=== PATIENT | female | born 1980 | race American Indian/Alaskan Native ===

== ENCOUNTER 2016-09-24 01:54 | Emergency (ER) | payer MEDICAID ==
[2016-09-24] MEDS ORDERED: Magnesium Sulfate 2 GM in Sodium Chloride 0.9% 100 ML IV STA (02:21)
[2016-09-24] MEDS ORDERED: Albuterol-Ipratrop 3 mg / 0.5 (3 ml) UD INH STA ×3 (02:21→02:22)
--- NOTE | 2016-09-24 02:24 | ED PDOC ---
HPI: SOB/CHF/COPD Time Seen by Provider: 09/24/16 02:12 Chief Complaint (Nursing): Respiratory Distress Chief Complaint (Provider): SOB History Per: Patient History/Exam Limitations: no limitations Onset/Duration Of Symptoms: Days (1) Current Symptoms Are (Timing): Still Present Additional Complaint(s): 36yo female with PMHx including asthma presents to the ED with c/o SOB x 1 day. Patient reports misplacing ventolin pump and complains of wheezing and dry cough. Denies fever, n/v/d, chest pain. Past Medical History Reviewed: Historical Data, Nursing Documentation, Vital Signs Vital Signs: Last Vital Signs Temp 98.6 F 09/24/16 02:17 Pulse 98 H 09/24/16 02:17 Resp 16 09/24/16 02:17 BP 124/78 09/24/16 02:17 Pulse Ox 99 09/24/16 02:29 - Medical History PMH: Asthma, COPD, Emphysema Denies: Chronic Kidney Disease - Surgical History Surgical History: No Surg Hx - Family History Family History: States: No Known Family Hx - Social History Current smoker - smoking cessation education provided: No Alcohol: None Drugs: Denies - Home Medications Home Medications: Ambulatory Orders Medication Instructions Recorded Albuterol HFA [Ventolin HFA 90 2 puff IH Q4 #0 puff 08/16/14 mcg/actuation (8 g)] Codeine Phosphate/Promethazi 5 ml PO Q4 PRN #0 syr 08/16/14 [Promethazine with Codeine 10 mg/5 ml-6.25 mg/] Fluticasone/Salmeterol 100/50 1 puff IH Q12 #0 puff 08/16/14 [Advair Diskus 100/50] Ipratropium/Albuterol Sulfate 3 ml IH BID #0 darlene 08/16/14 [Duoneb 3 mg/3 ml-0.5 mg/3 ml 3 ml] Levocetirizine Dihydrochlori 5 mg PO DAILY #0 tab 08/16/14 [Xyzal] Montelukast Sodium [Singulair] 10 mg PO DAILY #0 tab 08/16/14 Pantoprazole [Protonix] 40 mg PO DAILY #0 ect 08/16/14 Prednisone 5 mg PO DAILY #0 tab 02/05/15 Albuterol 1 puff IH Q4 PRN #1 inh 05/30/15 Albuterol HFA [Ventolin HFA 90 1 - 2 puff IH Q6 PRN #1 inhaler 03/25/16 mcg/actuation (8 g)] predniSONE [predniSONE Tab] 60 mg PO QAM #12 tab 03/25/16 Albuterol HFA [Ventolin HFA 90 2 puff IH [id number] PRN #1 puff 07/03/16 mcg/actuation (8 g)] Fluticasone/Salmeterol 250/50 1 dsk IH DAILY #1 puff 07/03/16 [Advair Diskus] Methylprednisolone [Medrol Dose 4 mg PO DAILY #21 mg 07/03/16 Pack (21 tabs)] Methylprednisolone [Medrol Dosepak] 4 mg PO ASDIR #1 pkg 09/24/16 - Allergies Allergies/Adverse Reactions: Allergies Allergy/AdvReac Type Severity Reaction Status Date / Time FISH Allergy SHORTNESS Verified 07/03/16 14:48 OF BREATH iodine Allergy SHORTNESS Verified 07/03/16 14:48 OF BREATH shellfish derived Allergy SHORTNESS Verified 07/03/16 14:48 OF BREATH Review of Systems ROS Statement: Except As Marked, All Systems Reviewed And Found Negative Constitutional: Negative for: Fever Cardiovascular: Negative for: Chest Pain Respiratory: Positive for: Cough, Shortness of Breath, Wheezing Gastrointestinal: Negative for: Nausea, Vomiting, Diarrhea Physical Exam - Reviewed Nursing Documentation Reviewed: Yes Vital Signs Reviewed: Yes - Physical Exam Appears: Positive for: Well, No Acute Distress, Uncomfortable Head Exam: Positive for: ATRAUMATIC, NORMAL INSPECTION, NORMOCEPHALIC Skin: Positive for: Normal Color, Warm, Dry Eye Exam: Positive for: Normal appearance, EOMI, PERRL ENT: Positive for: Normal ENT Inspection Neck: Positive for: Normal, Painless ROM, Supple Cardiovascular/Chest: Positive for: Regular Rate, Rhythm. Negative for: Murmur , Tachycardia Respiratory: Positive for: Rhonchi (b/l inspiratory ), Wheezing (b/l expiratory ). Negative for: Respiratory Distress Gastrointestinal/Abdominal: Positive for: Normal Exam, Bowel Sounds, Soft. Negative for: Tenderness Back: Positive for: Normal Inspection. Negative for: L CVA Tenderness, R CVA Tenderness Extremity: Positive for: Normal ROM. Negative for: Deformity, Swelling Neurologic/Psych: Positive for: Alert, Oriented. Negative for: Motor/Sensory Deficits - Laboratory Results Result Diagrams: 09/24/16 02:33 09/24/16 02:33 - ECG O2 Sat by Pulse Oximetry: 99 Pulse Ox Interpretation: Normal Medical Decision Making Medical Decision Makin: Impression: 36yo female w/ wheezing and cough in setting of known asthma Plan: EKG Labs duoneb 3ml INH x3, mag sulfate 2gm IV, solu-medrol 125mg IVP, IVF reassess 0458: Patient reports marked improvement and is stable for d/c. Dx: asthma exacerbation Rx: medrol dosepak Improved F/U PCP 1-2 days Scribe Attestation: Documented by Brittany Brown acting as a scribe for Mark Castellano MD. Provider Scribe Attestation: All medical record entries made by the Scribe were at my direction and personally dictated by me. I have reviewed the chart and agree that the record accurately reflects my personal performance of the history, physical exam, medical decision making, and the department course for this patient. I have also personally directed, reviewed, and agree with the discharge instructions and disposition. Disposition - Clinical Impression Clinical Impression: Asthma attack - Patient ED Disposition Is Patient to be Admitted: No Counseled Patient/Family Regarding: Studies Performed, Diagnosis, Need For Followup, Rx Given - Disposition Referrals: Eliane Barrera MD [Primary Care Provider] - Disposition: Routine/Home Disposition Time: 04:58 Condition: IMPROVED Prescriptions: Methylprednisolone [Medrol Dosepak] 4 mg PO ASDIR #1 pkg Instructions: Asthma (ED)
[2016-09-24 02:43] LABS: BASO # 0.1 K/uL (0.0-0.2); BASO % 0.9 % (0.0-2.0); EOS # 0.9 K/uL (0.0-0.7); HEMATOCRIT 39.3 % (34.0-47.0); LYMPH # 2.6 K/uL (1.0-4.3); MEAN CELL VOLUME 93.6 fl (81.0-99.0); MEAN CORPUSCULAR HGB CONC 33.1 g/dL (33.0-37.0); MONO # 0.7 K/uL (0.0-0.8); MONO % 6.7 % (0.0-10.0); NEUT # 6.4 K/uL (1.8-7.0); NEUT % 60.4 % (50.0-75.0); RED CELL DISTRIBUTION WIDTH 14.3 % (11.5-14.5); WHITE BLOOD COUNT 10.6 K/uL (4.8-10.8)
[2016-09-24 02:46] LABS: CHLORIDE 105 mmol/L (98-107)
[2016-09-24 02:47] LABS: POTASSIUM 4.4 MMOL/L (3.6-5.0); SODIUM 139 mmol/l (132-148)
[2016-09-24 02:49] LABS: ALB/GLOB RATIO 1.2 (1.0-2.1); ALKALINE PHOSPHATASE 80 U/L (38-126); AST/SGOT 25 U/L (14-36); BILIRUBIN,TOTAL 0.3 mg/dl (0.2-1.3); CARBON DIOXIDE 23 mmol/L (22-30); GFR AFRICAN-AMERICAN > 60; TOTAL PROTEIN 7.6 G/DL (6.3-8.2)
[2016-09-24 02:50] LABS: ALT/SGPT 18 U/L (9-52); BLOOD UREA NITROGEN 18 mg/dl (7-17); CALCIUM 9.2 mg/dL (8.4-10.2); GLUCOSE,RANDOM 92 mg/dL (65-105)
[2016-09-24 05:40] VITALS: BP 124/78; PULSE 98; TEMP 98.6; O2SAT 99
[2016-09-24 06:41] VITALS: RESP 30
--- NOTE | 2016-09-24 18:55 | CARD ---
APPROVED REPORT EKG Measurement Heart [id number] <Conclusion> Normal sinus rhythm Possible Left atrial enlargement Borderline ECG
== END 2016-09-24 04:15 | disposition home or self-care (01) ==
LOC: H.ER 01:54
DX: J45.901 Unspecified asthma with (acute) exacerbation (principal); R05 Cough

== ENCOUNTER 2016-11-30 16:41 | Emergency (ER) | payer MEDICAID ==
[2016-11-30 16:48] VITALS: BP 126/81; PULSE 72; RESP 18; TEMP 98.7; O2SAT 95
[2016-11-30] MEDS ORDERED: Albuterol-Ipratrop 3 mg / 0.5 (3 ml) UD ONE (17:06)
[2016-11-30] MEDS ORDERED: Albuterol-Ipratrop 3 mg / 0.5 (3 ml) UD INH STA (17:12)
--- NOTE | 2016-11-30 18:02 | ED PDOC ---
HPI: Allergic Reaction Time Seen by Provider: 11/30/16 16:51 Chief Complaint (Nursing): Allergic Reaction Chief Complaint (Provider): Allergic Reaction History Per: Patient History/Exam Limitations: no limitations Onset/Duration Of Symptoms: Days (x1 day) Current Symptoms Are (Timing): Still Present Additional Complaint(s): 26 y/o female with a past medical history from asthma presents to the emergency department with a complaint of shortness of breath since 8am today, 11/30/2016. Associated with a non-productive cough, chest tightness and asthma exacerbation. Reports using albuterol pump and taking singulair with minimal relief of symptoms. States she is allergic to fish so when fish is cooked at work, it immediately causes asthma exacerbation. Denies fever and chills. PMD: [facility] in [place], [place] Past Medical History Reviewed: Historical Data, Nursing Documentation, Vital Signs Vital Signs: Last Vital Signs Temp 98.7 F 11/30/16 16:45 Pulse 72 11/30/16 16:45 Resp 18 11/30/16 16:45 BP 126/81 11/30/16 16:45 Pulse Ox 95 11/30/16 16:45 - Medical History PMH: Asthma, COPD, Emphysema Denies: Chronic Kidney Disease Other PMH: Seasonal allergies and ezcema - Surgical History Surgical History: No Surg Hx - Family History Family History: States: Other Other Family History: Asthma - Social History Current smoker - smoking cessation education provided: No - Home Medications Home Medications: Ambulatory Orders Medication Instructions Recorded Albuterol HFA [Ventolin HFA 90 2 puff IH Q4 #0 puff 08/16/14 mcg/actuation (8 g)] Codeine Phosphate/Promethazi 5 ml PO Q4 PRN #0 syr 08/16/14 [Promethazine with Codeine 10 mg/5 ml-6.25 mg/] Fluticasone/Salmeterol 100/50 1 puff IH Q12 #0 puff 08/16/14 [Advair Diskus 100/50] Ipratropium/Albuterol Sulfate 3 ml IH BID #0 darlene 08/16/14 [Duoneb 3 mg/3 ml-0.5 mg/3 ml 3 ml] Levocetirizine Dihydrochlori 5 mg PO DAILY #0 tab 08/16/14 [Xyzal] Montelukast Sodium [Singulair] 10 mg PO DAILY #0 tab 08/16/14 Pantoprazole [Protonix] 40 mg PO DAILY #0 ect 08/16/14 Prednisone 5 mg PO DAILY #0 tab 08/16/14 Albuterol 1 puff IH Q4 PRN #1 inh 05/30/15 Albuterol HFA [Ventolin HFA 90 1 - 2 puff IH Q6 PRN #1 inhaler 03/25/16 mcg/actuation (8 g)] predniSONE [predniSONE Tab] 60 mg PO QAM #12 tab 03/25/16 Albuterol HFA [Ventolin HFA 90 2 puff IH [id number] PRN #1 puff 07/03/16 mcg/actuation (8 g)] Fluticasone/Salmeterol 250/50 1 dsk IH DAILY #1 puff 07/03/16 [Advair Diskus] Methylprednisolone [Medrol Dose 4 mg PO DAILY #21 mg 07/03/16 Pack (21 tabs)] Albuterol HFA [Ventolin HFA 90 1 - 2 puff IH Q6 PRN #1 inhaler 09/24/16 mcg/actuation (8 g)] Methylprednisolone [Medrol Dosepak] 4 mg PO ASDIR #1 pkg 09/24/16 Albuterol 0.083% [Albuterol 3 ml IH Q4 PRN #50 neb 11/30/16 Sulfate 3 Ml] Fexofenadine HCl [JulianneNf] 180 mg PO DAILY #30 tab 11/30/16 Prednisone 50 mg PO DAILY #3 tablet 11/30/16 - Allergies Allergies/Adverse Reactions: Allergies Allergy/AdvReac Type Severity Reaction Status Date / Time FISH Allergy SHORTNESS Verified 11/30/16 16:45 OF BREATH iodine Allergy SHORTNESS Verified 11/30/16 16:45 OF BREATH shellfish derived Allergy SHORTNESS Verified 11/30/16 16:45 OF BREATH Review of Systems ROS Statement: Except As Marked, All Systems Reviewed And Found Negative Constitutional: Negative for: Fever, Chills Cardiovascular: Positive for: Other (chest tightness) Respiratory: Positive for: Cough (Non-productive ), Shortness of Breath, Other ( Difficulty breathing) Physical Exam - Reviewed Nursing Documentation Reviewed: Yes Vital Signs Reviewed: Yes - Physical Exam Appears: Positive for: Non-toxic, No Acute Distress Head Exam: Positive for: ATRAUMATIC, NORMOCEPHALIC Skin: Positive for: Normal Color, Warm, Dry Cardiovascular/Chest: Positive for: Regular Rate, Rhythm. Negative for: Murmur Respiratory: Positive for: Rhonchi (Loud rhonchi on the right lower lung field ) , Wheezing (End expiratory wheeze). Negative for: Accessory Muscle Use, Respiratory Distress Neurologic/Psych: Positive for: Alert, Oriented - ECG O2 Sat by Pulse Oximetry: 95 (RA) Pulse Ox Interpretation: Normal - Critical Care Notes:: Time: 16:51 Initial impression: Asthma exacerbation rule out pneumonia Initial plan: --ED Urine Dipstick (POC) Stat --ED Urine (POC) --Chest Twi Views (PA/LAT) (RAD) --Duoneb 3 ml INH Stat --Peak Flow PRE/POST TX --Revaluation Time: 18:23 Chest X-ray FINDINGS: LUNGS: No focal consolidation. Please note that chest x-ray has limited sensitivity for the detection of pulmonary masses. PLEURA: No significant pleural effusion identified. No definite pneumothorax . CARDIOVASCULAR: The cardiomediastinal silhouette appears within normal limits of size. OSSEOUS STRUCTURES: No acute osseous abnormality identified. VISUALIZED UPPER ABDOMEN: Unremarkable. OTHER FINDINGS: None. IMPRESSION: No focal consolidation, significant pleural effusion, or definite pneumothorax identified. Scribe Attestation: Documented by Emelina Meyer, acting as a scribe for Nimisha Knowles MD. Provider Scribe Attestation: All medical record entries made by the Scribe were at my direction and personally dictated by me. I have reviewed the chart and agree that the record accurately reflects my personal performance of the history, physical exam, medical decision making, and the department course for this patient. I have also personally directed, reviewed, and agree with the discharge instructions and disposition. Disposition - Clinical Impression Clinical Impression: Asthma exacerbation Counseled Patient/Family Regarding: Studies Performed, Diagnosis, Need For Followup, Rx Given - Disposition Referrals: [facility] [Provider Group] Disposition: Routine/Home Disposition Time: 18:00 Condition: IMPROVED Prescriptions: Albuterol 0.083% [Albuterol Sulfate 3 Ml] 3 ml IH Q4 PRN #50 neb PRN Reason: asthma Fexofenadine HCl [JulianneNf] 180 mg PO DAILY #30 tab Prednisone 50 mg PO DAILY #3 tablet Instructions: Asthma (ED) Forms: [facility] ED School/Work Excuse
--- NOTE | 2016-11-30 18:25 | RAD ---
HISTORY: sob COMPARISON: Chest x-ray performed 08/14/14 TECHNIQUE: Chest PA and lateral FINDINGS: LUNGS: No focal consolidation. Please note that chest x-ray has limited sensitivity for the detection of pulmonary masses. PLEURA: No significant pleural effusion identified. No definite pneumothorax . CARDIOVASCULAR: The cardiomediastinal silhouette appears within normal limits of size. OSSEOUS STRUCTURES: No acute osseous abnormality identified. VISUALIZED UPPER ABDOMEN: Unremarkable. OTHER FINDINGS: None. IMPRESSION: No focal consolidation, significant pleural effusion, or definite pneumothorax identified.
== END 2016-11-30 19:13 | disposition home or self-care (01) ==
LOC: H.ER 16:41
DX: J45.901 Unspecified asthma with (acute) exacerbation (principal); J44.9 Chronic obstructive pulmonary disease, unspecified; R06.02 Shortness of breath

== ENCOUNTER 2017-02-06 03:06 | Emergency (ER) | payer MEDICAID ==
[2017-02-06 03:22] VITALS: BP 124/87; PULSE 82; RESP 16; TEMP 97.5; O2SAT 97
--- NOTE | 2017-02-06 03:35 | ED PDOC ---
HPI: General Adult Time Seen by Provider: 02/06/17 03:17 Chief Complaint (Nursing): Med Refill Chief Complaint (Provider): Medication refill - Albuterol pump History Per: Patient History/Exam Limitations: no limitations Onset/Duration Of Symptoms: Days Have you had recent travel within the past 21 days to any of the following countries: [place], [place], [place] or [place]?: No Additional Complaint(s): Pt states she lost her albuterol inhaler. Pt denies current SOB but states she uses her inhaler often. 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 Past Medical History Reviewed: Historical Data, Nursing Documentation, Vital Signs Vital Signs: Last Vital Signs Temp 97.5 F L 02/06/17 03:18 Pulse 82 02/06/17 03:18 Resp 16 02/06/17 03:18 BP 124/87 02/06/17 03:18 Pulse Ox 97 02/06/17 03:35 - Medical History PMH: Asthma, COPD, Emphysema Denies: Chronic Kidney Disease - Surgical History Surgical History: No Surg Hx - Family History Family History: States: No Known Family Hx - Living Arrangements Living Arrangements: With Family - Social History Current smoker - smoking cessation education provided: No Alcohol: Occasional Drugs: Denies - Home Medications Home Medications: Ambulatory Orders Medication Instructions Recorded Albuterol HFA [Ventolin HFA 90 2 puff IH Q4 #0 puff 08/16/14 mcg/actuation (8 g)] Codeine Phosphate/Promethazi 5 ml PO Q4 PRN #0 syr 08/16/14 [Promethazine with Codeine 10 mg/5 ml-6.25 mg/] Fluticasone/Salmeterol 100/50 1 puff IH Q12 #0 puff 08/16/14 [Advair Diskus 100/50] Ipratropium/Albuterol Sulfate 3 ml IH BID #0 darlene 08/16/14 [Duoneb 3 mg/3 ml-0.5 mg/3 ml 3 ml] Levocetirizine Dihydrochlori 5 mg PO DAILY #0 tab 08/16/14 [Xyzal] Montelukast Sodium [Singulair] 10 mg PO DAILY #0 tab 08/16/14 Pantoprazole [Protonix] 40 mg PO DAILY #0 ect 08/16/14 Prednisone 5 mg PO DAILY #0 tab 08/16/14 Albuterol 1 puff IH Q4 PRN #1 inh 05/30/15 Albuterol HFA [Ventolin HFA 90 1 - 2 puff IH Q6 PRN #1 inhaler 03/25/16 mcg/actuation (8 g)] predniSONE [predniSONE Tab] 60 mg PO QAM #12 tab 03/25/16 Albuterol HFA [Ventolin HFA 90 2 puff IH [id number] PRN #1 puff 07/03/16 mcg/actuation (8 g)] Fluticasone/Salmeterol 250/50 1 dsk IH DAILY #1 puff 07/03/16 [Advair Diskus] Methylprednisolone [Medrol Dose 4 mg PO DAILY #21 mg 07/03/16 Pack (21 tabs)] Albuterol HFA [Ventolin HFA 90 1 - 2 puff IH Q6 PRN #1 inhaler 09/24/16 mcg/actuation (8 g)] Methylprednisolone [Medrol Dosepak] 4 mg PO ASDIR #1 pkg 09/24/16 Albuterol 0.083% [Albuterol 3 ml IH Q4 PRN #50 neb 11/30/16 Sulfate 3 Ml] Albuterol HFA [Ventolin HFA 90 2 puff IH Q4H PRN #1 inh 11/30/16 mcg/actuation (8 g)] Fexofenadine HCl [JulianneNf] 180 mg PO DAILY #30 tab 11/30/16 Prednisone 50 mg PO DAILY #3 tablet 11/30/16 Albuterol HFA [Ventolin HFA 90 1 puff IH BID PRN #1 unit 02/06/17 mcg/actuation (8 g)] - Allergies Allergies/Adverse Reactions: Allergies Allergy/AdvReac Type Severity Reaction Status Date / Time FISH Allergy SHORTNESS Verified 11/30/16 16:45 OF BREATH iodine Allergy SHORTNESS Verified 11/30/16 16:45 OF BREATH shellfish derived Allergy SHORTNESS Verified 11/30/16 16:45 OF BREATH Review of Systems ROS Statement: Except As Marked, All Systems Reviewed And Found Negative Constitutional: Negative for: Fever, Chills Respiratory: Negative for: Cough, Shortness of Breath Physical Exam - Reviewed Nursing Documentation Reviewed: Yes Vital Signs Reviewed: Yes - Physical Exam Appears: Positive for: Well, Non-toxic, No Acute Distress Head Exam: Positive for: ATRAUMATIC, NORMAL INSPECTION, NORMOCEPHALIC Skin: Positive for: Normal Color, Warm, DRY Eye Exam: Positive for: Normal appearance ENT: Positive for: Normal ENT Inspection Neck: Positive for: Normal, Painless ROM Cardiovascular/Chest: Positive for: Regular Rate, Rhythm Respiratory: Positive for: CNT, Normal Breath Sounds Back: Positive for: Normal Inspection Extremity: Positive for: Normal ROM Neurologic/Psych: Positive for: Alert, Oriented - ECG O2 Sat by Pulse Oximetry: 97 Disposition - Clinical Impression Clinical Impression: Medication refill - Patient ED Disposition Is Patient to be Admitted: No Counseled Patient/Family Regarding: Diagnosis, Need For Followup, Rx Given - Disposition Referrals: [facility] [Outside] Disposition: Routine/Home Disposition Time: 03:28 Condition: GOOD Prescriptions: Albuterol HFA [Ventolin HFA 90 mcg/actuation (8 g)] 1 puff IH BID PRN #1 unit PRN Reason: Wheezing Instructions: Medicine Refill (ED) Forms: [facility] ED School/Work Excuse
== END 2017-02-06 04:06 | disposition home or self-care (01) ==
LOC: H.ER 03:06
DX: Z76.0 Encounter for issue of repeat prescription (principal)

== ENCOUNTER 2017-03-02 01:54 | Emergency (ER) | payer MEDICAID ==
[2017-03-02 02:20] VITALS: BP 126/87; PULSE 86; RESP 16; TEMP 98.1; O2SAT 98
--- NOTE | 2017-03-02 02:38 | ED PDOC ---
Lower Extremity Pain/Injury Time Seen by Provider: 03/02/17 02:04 Chief Complaint (Nursing): Lower Extremity Problem/Injury Chief Complaint (Provider): left knee pain x 1 day History Per: Patient History/Exam Limitations: no limitations Onset/Duration Of Symptoms: Hrs (1) Current Symptoms Are (Timing): Still Present Severity: Moderate Pain Scale Rating Of: 5 Additional History Per: Patient Additional Complaint(s): Patient is a 36 yo AA female with PMHX of asthma and arthritis presents to ED with acute left knee pain after trip and fall earlier in day. Patient states that pain is worse when she attempts to bend knee. She reports taking two doses Ibuprofen w/o relief. Patient denies any associated injury. - Hip Description Of Injury: Fell, Tripped - Knee Currently Unable To: Bend Or Move Past Medical History Reviewed: Historical Data, Nursing Documentation, Vital Signs Vital Signs: Last Vital Signs Temp 98.1 F 03/02/17 02:14 Pulse 86 03/02/17 02:14 Resp 16 03/02/17 02:14 BP 126/87 03/02/17 02:14 Pulse Ox 98 03/02/17 02:14 - Medical History PMH: Asthma, COPD, Emphysema Denies: Chronic Kidney Disease - Surgical History Surgical History: No Surg Hx - Family History Family History: States: No Known Family Hx - Living Arrangements Living Arrangements: With Family - Social History Current smoker - smoking cessation education provided: No Ex-Smoker (has not smoked in the last 12 months): No Alcohol: None Drugs: Denies - Home Medications Home Medications: Ambulatory Orders Medication Instructions Recorded Albuterol HFA [Ventolin HFA 90 2 puff IH Q4 #0 puff 08/16/14 mcg/actuation (8 g)] Codeine Phosphate/Promethazi 5 ml PO Q4 PRN #0 syr 08/16/14 [Promethazine with Codeine 10 mg/5 ml-6.25 mg/] Fluticasone/Salmeterol 100/50 1 puff IH Q12 #0 puff 08/16/14 [Advair Diskus 100/50] Ipratropium/Albuterol Sulfate 3 ml IH BID #0 darlene 08/16/14 [Duoneb 3 mg/3 ml-0.5 mg/3 ml 3 ml] Levocetirizine Dihydrochlori 5 mg PO DAILY #0 tab 08/16/14 [Xyzal] Montelukast Sodium [Singulair] 10 mg PO DAILY #0 tab 08/16/14 Pantoprazole [Protonix] 40 mg PO DAILY #0 ect 08/16/14 Prednisone 5 mg PO DAILY #0 tab 08/16/14 Albuterol 1 puff IH Q4 PRN #1 inh 05/30/15 Albuterol HFA [Ventolin HFA 90 1 - 2 puff IH Q6 PRN #1 inhaler 03/25/16 mcg/actuation (8 g)] predniSONE [predniSONE Tab] 60 mg PO QAM #12 tab 03/25/16 Albuterol HFA [Ventolin HFA 90 2 puff IH [id number] PRN #1 puff 07/03/16 mcg/actuation (8 g)] Fluticasone/Salmeterol 250/50 1 dsk IH DAILY #1 puff 07/03/16 [Advair Diskus] Methylprednisolone [Medrol Dose 4 mg PO DAILY #21 mg 07/03/16 Pack (21 tabs)] Albuterol HFA [Ventolin HFA 90 1 - 2 puff IH Q6 PRN #1 inhaler 09/24/16 mcg/actuation (8 g)] Methylprednisolone [Medrol Dosepak] 4 mg PO ASDIR #1 pkg 09/24/16 Albuterol 0.083% [Albuterol 3 ml IH Q4 PRN #50 neb 11/30/16 Sulfate 3 Ml] Albuterol HFA [Ventolin HFA 90 2 puff IH Q4H PRN #1 inh 11/30/16 mcg/actuation (8 g)] Fexofenadine HCl [JulianneNf] 180 mg PO DAILY #30 tab 11/30/16 Prednisone 50 mg PO DAILY #3 tablet 11/30/16 Albuterol HFA [Ventolin HFA 90 1 puff IH BID PRN #1 unit 02/06/17 mcg/actuation (8 g)] Naproxen [Naprosyn] 500 mg PO Q12 #14 tab 03/02/17 - Allergies Allergies/Adverse Reactions: Allergies Allergy/AdvReac Type Severity Reaction Status Date / Time FISH Allergy SHORTNESS Verified 03/02/17 02:13 OF BREATH iodine Allergy SHORTNESS Verified 03/02/17 02:13 OF BREATH shellfish derived Allergy SHORTNESS Verified 03/02/17 02:13 OF BREATH Review of Systems ROS Statement: Except As Marked, All Systems Reviewed And Found Negative Musculoskeletal: Positive for: Other (knee pain) Physical Exam - Reviewed Nursing Documentation Reviewed: Yes Vital Signs Reviewed: Yes - Physical Exam Appears: Positive for: Well, Non-toxic Skin: Positive for: Normal Color Extremity: Positive for: Tenderness (mild to left knee with passive and active ROM), Capillary Refill (<2 sec), Swelling (mild swelling to anyterior knee), Other (small abrasion is noted to left knee surface). Negative for: Calf Tenderness, Deformity Neurologic/Psych: Positive for: Alert, Oriented. Negative for: Motor/Sensory Deficits - ECG O2 Sat by Pulse Oximetry: 98 Medical Decision Making Medical Decision Makin yo female with knee injury after fall Xray, IM Toradol ordered Xray NAD Knee SAIGE wrap applied; pt is stable for dc home Dx Left Knee Contusion RX Napsrosyn; FU PCP 2 days Disposition - Clinical Impression Clinical Impression: Knee contusion - Patient ED Disposition Is Patient to be Admitted: No Counseled Patient/Family Regarding: Studies Performed, Diagnosis, Need For Followup, Rx Given - Disposition Disposition: Routine/Home Disposition Time: 02:42 Condition: STABLE Prescriptions: Naproxen [Naprosyn] 500 mg PO Q12 #14 tab Instructions: Knee Pain (ED) Forms: [facility] ([place])
--- NOTE | 2017-03-02 11:28 | RAD ---
PROCEDURE: Left Knee Radiographs. HISTORY: Pain. COMPARISON: None. FINDINGS: BONES: Bone alignment and mineralization are normal. There is no acute displaced fracture or bone destruction. JOINTS: Normal. No osteoarthritis. JOINT EFFUSION: None. OTHER FINDINGS: None. IMPRESSION: No acute fracture or dislocation.
== END 2017-03-02 04:00 | disposition home or self-care (01) ==
LOC: H.ER 01:54
DX: S80.02XA Contusion of left knee, initial encounter (principal); W19.XXXA Unspecified fall, initial encounter; Y92.89 Other specified places as the place of occurrence of the external cause

== ENCOUNTER 2017-04-29 00:36 | Emergency (ER) | payer MEDICAID ==
[2017-04-29 00:56] VITALS: BP 122/81; PULSE 80; RESP 18; TEMP 98; O2SAT 97
[2017-04-29] MEDS ORDERED: Albuterol-Ipratrop 3 mg / 0.5 (3 ml) UD INH STA ×2 (01:15→01:19)
--- NOTE | 2017-04-29 01:19 | ED PDOC ---
HPI: SOB/CHF/COPD Time Seen by Provider: 04/29/17 00:58 Chief Complaint (Nursing): Shortness Of Breath Chief Complaint (Provider): Shortness Of Breath History Per: Patient History/Exam Limitations: no limitations Onset/Duration Of Symptoms: Days (x2) Current Symptoms Are (Timing): Still Present Initiating Event: Out Of Medications Additional Complaint(s): Ness is a 36 y/o female with a past medical history of asthma, who presents to the ED complaining of wheezing and shortness of breath for 2 days. States that she ran out of medication 2 days ago. Her past medications have included Ventolin, Advair, Singulair, and prednisone. Patient reports being admitted to the ICU for asthma exacerbation (some admissions here) and intubated x2. PMD: [facility] Past Medical History Reviewed: Historical Data, Nursing Documentation, Vital Signs Vital Signs: Last Vital Signs Temp 98.0 F 04/29/17 00:54 Pulse 80 04/29/17 00:54 Resp 18 04/29/17 00:54 BP 122/81 04/29/17 00:54 Pulse Ox 97 04/29/17 01:21 - Medical History PMH: Asthma, COPD, Emphysema Denies: Chronic Kidney Disease - Surgical History Surgical History: No Surg Hx - Family History Family History: States: Unknown Family Hx - Home Medications Home Medications: Ambulatory Orders Medication Instructions Recorded Codeine Phosphate/Promethazi 5 ml PO Q4 PRN #0 syr 08/16/14 [Promethazine with Codeine 10 mg/5 ml-6.25 mg/] Fluticasone/Salmeterol 100/50 1 puff IH Q12 #0 puff 08/16/14 [Advair Diskus 100/50] Ipratropium/Albuterol Sulfate 3 ml IH BID #0 darlene 08/16/14 [Duoneb 3 mg/3 ml-0.5 mg/3 ml 3 ml] Levocetirizine Dihydrochlori 5 mg PO DAILY #0 tab 08/16/14 [Xyzal] Montelukast Sodium [Singulair] 10 mg PO DAILY #0 tab 08/16/14 Pantoprazole [Protonix] 40 mg PO DAILY #0 ect 08/16/14 Prednisone 5 mg PO DAILY #0 tab 08/16/14 Albuterol 1 puff IH Q4 PRN #1 inh 05/30/15 Albuterol HFA [Ventolin HFA 90 1 - 2 puff IH Q6 PRN #1 inhaler 03/25/16 mcg/actuation (8 g)] Albuterol HFA [Ventolin HFA 90 2 puff IH [id number] PRN #1 puff 07/03/16 mcg/actuation (8 g)] Methylprednisolone [Medrol Dose 4 mg PO DAILY #21 mg 07/03/16 Pack (21 tabs)] Albuterol HFA [Ventolin HFA 90 1 - 2 puff IH Q6 PRN #1 inhaler 09/24/16 mcg/actuation (8 g)] Methylprednisolone [Medrol Dosepak] 4 mg PO ASDIR #1 pkg 09/24/16 Albuterol 0.083% [Albuterol 3 ml IH Q4 PRN #50 neb 11/30/16 Sulfate 3 Ml] Albuterol HFA [Ventolin HFA 90 2 puff IH Q4H PRN #1 inh 11/30/16 mcg/actuation (8 g)] Fexofenadine HCl [JulianneNf] 180 mg PO DAILY #30 tab 11/30/16 Prednisone 50 mg PO DAILY #3 tablet 11/30/16 Albuterol HFA [Ventolin HFA 90 1 puff IH BID PRN #1 unit 02/06/17 mcg/actuation (8 g)] Naproxen [Naprosyn] 500 mg PO Q12 #14 tab 03/02/17 Albuterol HFA [Ventolin HFA 90 2 puff IH Q4 #1 inh 04/29/17 mcg/actuation (8 g)] Fluticasone/Salmeterol 250/50 1 dsk IH DAILY #1 puff 04/29/17 [Advair Diskus] predniSONE [predniSONE Tab] 60 mg PO QAM #12 tab 04/29/17 - Allergies Allergies/Adverse Reactions: Allergies Allergy/AdvReac Type Severity Reaction Status Date / Time FISH Allergy SHORTNESS Verified 04/29/17 00:56 OF BREATH iodine Allergy SHORTNESS Verified 04/29/17 00:56 OF BREATH shellfish derived Allergy SHORTNESS Verified 04/29/17 00:56 OF BREATH Review of Systems ROS Statement: Except As Marked, All Systems Reviewed And Found Negative Respiratory: Positive for: Shortness of Breath, Wheezing Physical Exam - Reviewed Nursing Documentation Reviewed: Yes Vital Signs Reviewed: Yes - Physical Exam Appears: Positive for: Non-toxic, No Acute Distress Head Exam: Positive for: ATRAUMATIC, NORMAL INSPECTION, NORMOCEPHALIC Skin: Positive for: Normal Color, Warm, Dry Eye Exam: Positive for: EOMI, Normal appearance, PERRL Neck: Positive for: Normal, Painless ROM, Supple Cardiovascular/Chest: Positive for: Regular Rate, Rhythm. Negative for: Murmur Gastrointestinal/Abdominal: Positive for: Normal Exam, Soft. Negative for: Tenderness Back: Positive for: Normal Inspection. Negative for: L CVA Tenderness, R CVA Tenderness, Vertebral Tenderness Extremity: Positive for: Normal ROM. Negative for: Pedal Edema, Deformity Neurologic/Psych: Positive for: Alert, Oriented. Negative for: Motor/Sensory Deficits - ECG O2 Sat by Pulse Oximetry: 97 (RA) Pulse Ox Interpretation: Normal Medical Decision Making Medical Decision Making: Records reviewed, patient has been admitted here twice to the floor, but not to ICU. Initial Impression: Asthma Exacerbation Time: 01:15 Initial Plan: --Duoneb treatment x2 --Solu-Medrol 125 mg IV --Peak Flow pre/post treatment Patient reports improvement in symptoms after treatment. Requesting to go home. Time: 3:00 Clinical Impression: Asthma Attack Upon provider reevaluation patient is medically stable, and requires no further treatment in the ED at this time. Patient will be discharged with Rx for Ventolin, Advair, and prednisone. Counseling was provided and all questions were answered regarding diagnosis and need for follow up with PCP in 2-3 days. There is agreement to discharge plan. Return if symptoms persist or worsen. Scribe Attestation: Documented by Mildred Florez, acting as a scribe for Rodolfo Gomes MD Provider Scribe Attestation: All medical record entries made by the Scribe were at my direction and personally dictated by me. I have reviewed the chart and agree that the record accurately reflects my personal performance of the history, physical exam, medical decision making, and the department course for this patient. I have also personally directed, reviewed, and agree with the discharge instructions and disposition. Disposition - Clinical Impression Clinical Impression: Asthma attack - Patient ED Disposition Is Patient to be Admitted: No Counseled Patient/Family Regarding: Diagnosis, Need For Followup, Rx Given - Disposition Referrals: [facility] [Outside] Disposition: Routine/Home Disposition Time: 03:02 Condition: GOOD Additional Instructions: Follow up with your PCP in 2-3 days. Prescriptions: Albuterol HFA [Ventolin HFA 90 mcg/actuation (8 g)] 2 puff IH Q4 #1 inh Fluticasone/Salmeterol 250/50 [Advair Diskus] 1 dsk IH DAILY #1 puff predniSONE [predniSONE Tab] 60 mg PO QAM #12 tab Instructions: Asthma (ED)
== END 2017-04-29 03:10 | disposition home or self-care (01) ==
LOC: H.ER 00:36
DX: J45.901 Unspecified asthma with (acute) exacerbation (principal)
CPT/HCPCS: 94640; 96374; 99282; J2930

== ENCOUNTER 2017-09-07 13:11 | Emergency (ER) | payer MEDICAID ==
[2017-09-07 13:36] VITALS: BP 110/75; PULSE 84; RESP 16; TEMP 98; O2SAT 100
[2017-09-07] MEDS ORDERED: Albuterol-Ipratrop 3 mg / 0.5 (3 ml) UD INH STA (14:19)
[2017-09-07] MEDS ORDERED: Sodium Chloride 0.9% 1,000 ML IV STA (14:19)
--- NOTE | 2017-09-07 14:21 | ED PDOC ---
HPI: SOB/CHF/COPD Time Seen by Provider: 09/07/17 14:20 Chief Complaint (Nursing): Shortness Of Breath Chief Complaint (Provider): wheezing History Per: Patient Additional Complaint(s): 37-year-old female with history of asthma presents to emergency department with shortness of breath and wheezing that started 2 days ago. Patient states her symptoms are not relieved by albuterol inhaler. She used to take Advair daily but her insurance stopped covering the medication 3 months ago. Patient denies fever or chills, she has had slight dry cough. Past Medical History Reviewed: Historical Data, Nursing Documentation, Vital Signs Vital Signs: Last Vital Signs Temp 98.0 F 09/07/17 13:34 Pulse 84 09/07/17 13:34 Resp 16 09/07/17 13:34 BP 110/75 09/07/17 13:34 Pulse Ox 100 09/07/17 14:21 - Medical History PMH: Asthma - Family History Family History: States: No Known Family Hx - Living Arrangements Living Arrangements: With Family - Social History Current smoker - smoking cessation education provided: No Alcohol: Social Drugs: Denies - Home Medications Home Medications: Ambulatory Orders Medication Instructions Recorded Codeine Phosphate/Promethazi 5 ml PO Q4 PRN #0 syr 08/16/14 [Promethazine with Codeine 10 mg/5 ml-6.25 mg/] Fluticasone/Salmeterol 100/50 1 puff IH Q12 #0 puff 08/16/14 [Advair Diskus 100/50] Ipratropium/Albuterol Sulfate 3 ml IH BID #0 darlene 08/16/14 [Duoneb 3 mg/3 ml-0.5 mg/3 ml 3 ml] Levocetirizine Dihydrochlori 5 mg PO DAILY #0 tab 08/16/14 [Xyzal] Montelukast Sodium [Singulair] 10 mg PO DAILY #0 tab 08/16/14 Pantoprazole [Protonix] 40 mg PO DAILY #0 ect 08/16/14 Prednisone 5 mg PO DAILY #0 tab 08/16/14 Albuterol 1 puff IH Q4 PRN #1 inh 05/30/15 Albuterol HFA [Ventolin HFA 90 1 - 2 puff IH Q6 PRN #1 inhaler 03/25/16 mcg/actuation (8 g)] Albuterol HFA [Ventolin HFA 90 2 puff IH [id number] PRN #1 puff 07/03/16 mcg/actuation (8 g)] Methylprednisolone [Medrol Dose 4 mg PO DAILY #21 mg 07/03/16 Pack (21 tabs)] Albuterol HFA [Ventolin HFA 90 1 - 2 puff IH Q6 PRN #1 inhaler 09/24/16 mcg/actuation (8 g)] Methylprednisolone [Medrol Dosepak] 4 mg PO ASDIR #1 pkg 09/24/16 Albuterol 0.083% [Albuterol 3 ml IH Q4 PRN #50 neb 11/30/16 Sulfate 3 Ml] Albuterol HFA [Ventolin HFA 90 2 puff IH Q4H PRN #1 inh 11/30/16 mcg/actuation (8 g)] Fexofenadine HCl [JulianneNf] 180 mg PO DAILY #30 tab 11/30/16 Prednisone 50 mg PO DAILY #3 tablet 11/30/16 Albuterol HFA [Ventolin HFA 90 1 puff IH BID PRN #1 unit 02/06/17 mcg/actuation (8 g)] Naproxen [Naprosyn] 500 mg PO Q12 #14 tab 03/02/17 Albuterol HFA [Ventolin HFA 90 2 puff IH Q4 #1 inh 04/29/17 mcg/actuation (8 g)] Fluticasone/Salmeterol 250/50 1 dsk IH DAILY #1 puff 04/29/17 [Advair Diskus] predniSONE [predniSONE Tab] 60 mg PO QAM #12 tab 04/29/17 Albuterol HFA [Ventolin HFA 90 2 puff IH [id number] PRN #1 puff 05/14/17 mcg/actuation (8 g)] Fluticasone/Salmeterol [Advair 1 each IH DAILY #1 blst.w.dev 05/14/17 250-50 Diskus] Methylprednisolone [Medrol Dose 4 mg PO DAILY #21 mg 05/14/17 Pack (21 tabs)] Albuterol HFA [Ventolin HFA 90 1 puff IH ASDIR #1 unit 09/07/17 mcg/actuation (8 g)] Prednisone 50 mg PO DAILY #5 tablet 09/07/17 - Allergies Allergies/Adverse Reactions: Allergies Allergy/AdvReac Type Severity Reaction Status Date / Time FISH Allergy SHORTNESS Verified 09/07/17 13:33 OF BREATH iodine Allergy SHORTNESS Verified 09/07/17 13:33 OF BREATH shellfish derived Allergy SHORTNESS Verified 09/07/17 13:33 OF BREATH seafood Allergy SHORTNESS Uncoded 09/07/17 13:33 OF BREATH Curb-65 Severity Score - CURB-65 Severity Score Confusion: No Respiratory Rate greater than/equal to 30: No Systolic BP <90 or Diastolic BP less than/equal 60mmHg: No Age >64: No Curb-65 Score: 0 Percentage 30-day mortality: 0.6% Wells Criteria for PE - Wells Criteria for Pulmonary Embolism Clinical Signs and Symptoms of DVT: No P.E is #1 Diagnosis, or Equally Likely: No Heart Rate >100: No Immobilization at least 3 days;Surgery previous 4 weeks: No Previous, objectively diagnosed PE or DVT: No Hemoptysis: No Malignancy w/treatment within 6 months, or palliative: No Total Score: 0 Review of Systems ROS Statement: Except As Marked, All Systems Reviewed And Found Negative Constitutional: Negative for: Fever Cardiovascular: Negative for: Chest Pain Respiratory: Positive for: Cough, Shortness of Breath, Wheezing Physical Exam - Reviewed Nursing Documentation Reviewed: Yes Vital Signs Reviewed: Yes - Physical Exam Appears: Positive for: Well, Non-toxic, No Acute Distress Skin: Negative for: Rash Eye Exam: Positive for: Normal appearance Cardiovascular/Chest: Positive for: Regular Rate, Rhythm Respiratory: Positive for: Wheezing. Negative for: Accessory Muscle Use, Crackles, Rales, Rhonchi, Respiratory Distress Extremity: Negative for: Pedal Edema Neurologic/Psych: Positive for: Alert, Oriented - Laboratory Results Urine POC: Negative (patient states she is certain she is not , test declined) - ECG O2 Sat by Pulse Oximetry: 100 Pulse Ox Interpretation: Normal Medical Decision Making Medical Decision Makin37 year old with asthma exacerbation Plan: Duoneb x 3 IM solumedrol Patient was noted to be verbally abusive toward RN taking care of her stating she was not given her breathing treatments quickly enough. Charge nurse resumed care and administered meds. Patient states she felt better after treatments. Rx given for albuterol and prednisone. Patient was instructed to follow up with primary doctor to discuss starting a different maintenance medication for asthma but will be covered by her insurance. Disposition - Clinical Impression Clinical Impression: Asthma exacerbation - Patient ED Disposition Is Patient to be Admitted: No Counseled Patient/Family Regarding: Diagnosis, Need For Followup, Rx Given - Disposition Referrals: Eliane Barrera MD [Family Provider] - Disposition: Routine/Home Disposition Time: 15:12 Condition: STABLE Additional Instructions: Take prescription medications as directed. Follow-up with primary doctor in 1-2 days. Prescriptions: Albuterol HFA [Ventolin HFA 90 mcg/actuation (8 g)] 1 puff IH ASDIR #1 unit Prednisone 50 mg PO DAILY #5 tablet Instructions: Asthma in Adults Forms: [facility] (Korean), [facility] ED School/Work Excuse
[2017-09-07] MEDS ORDERED: Albuterol-Ipratrop 3 mg / 0.5 (3 ml) UD ONE (14:24)
== END 2017-09-07 15:36 | disposition home or self-care (01) ==
LOC: H.ER 13:11
DX: J45.901 Unspecified asthma with (acute) exacerbation (principal); J44.9 Chronic obstructive pulmonary disease, unspecified; J45.909 Unspecified asthma, uncomplicated
CPT/HCPCS: 94640; 96372; 99283; J2930

== ENCOUNTER 2017-10-28 17:30 | Emergency (ER) | payer MEDICAID ==
[2017-10-28 17:50] VITALS: RESP 18
[2017-10-28] MEDS ORDERED: Sodium Chloride 0.9% 1,000 ML IV STA (17:51)
[2017-10-28] MEDS ORDERED: Albuterol-Ipratrop 3 mg / 0.5 (3 ml) UD INH STA (17:51)
[2017-10-28] MEDS ORDERED: Albuterol-Ipratrop 3 mg / 0.5 (3 ml) UD IH STA (17:51)
--- NOTE | 2017-10-28 17:55 | ED PDOC ---
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 Pt. is allergic to fish and started getting dyspnea. Tried her nebs and took 15mg of prednisone. Pt. got albuterol and duoneb in the ambulance. Pt. with no rash, itching, tongue swelling, chest pain, abd pain, nausea, vomit, diarrhea. No headaches. No neck pain. Has had similar attacks and feels like her asthma. No leg pain. Past Medical History Reviewed: Nursing Documentation, Vital Signs Vital Signs: Last Vital Signs Temp 97.5 F L 10/28/17 17:44 Pulse 104 H 10/28/17 17:44 Resp 18 10/28/17 17:46 BP 123/63 10/28/17 17:44 Pulse Ox 98 10/28/17 17:56 - Medical History PMH: Asthma Denies: Chronic Kidney Disease - Surgical History Surgical History: No Surg Hx - Family History Family History: States: Unknown Family Hx - Social History Current smoker - smoking cessation education provided: No Alcohol: None Drugs: Denies - Home Medications Home Medications: Ambulatory Orders Medication Instructions Recorded Albuterol HFA [Ventolin HFA 90 1 puff IH ASDIR #1 unit 09/07/17 mcg/actuation (8 g)] Prednisone 50 mg PO DAILY #5 tablet 09/07/17 Albuterol Sulfate [Proair Hfa] 0.09 mg IH Q6H PRN #2 inh 10/28/17 predniSONE [predniSONE Tab] 20 mg PO BID 5 Days tab 10/28/17 - Allergies Allergies/Adverse Reactions: Allergies Allergy/AdvReac Type Severity Reaction Status Date / Time FISH Allergy SHORTNESS Verified 09/07/17 13:33 OF BREATH iodine Allergy SHORTNESS Verified 09/07/17 13:33 OF BREATH shellfish derived Allergy SHORTNESS Verified 09/07/17 13:33 OF BREATH seafood Allergy SHORTNESS Uncoded 09/07/17 13:33 OF BREATH Review of Systems ROS Statement: Except As Marked, All Systems Reviewed And Found Negative Respiratory: Positive for: Cough, Shortness of Breath, Wheezing Physical Exam - Reviewed Nursing Documentation Reviewed: Yes Vital Signs Reviewed: Yes - Physical Exam Appears: Positive for: Uncomfortable Head Exam: Positive for: ATRAUMATIC, NORMAL INSPECTION, NORMOCEPHALIC Skin: Positive for: Normal Color, Warm, DRY Eye Exam: Positive for: EOMI, Normal appearance, PERRL ENT: Positive for: Normal ENT Inspection Neck: Positive for: Normal, Painless ROM Cardiovascular/Chest: Positive for: Regular Rate, Rhythm Respiratory: Positive for: Wheezing (diffuse b/l) Gastrointestinal/Abdominal: Positive for: Normal Exam, Soft. Negative for: Tenderness Back: Positive for: Normal Inspection. Negative for: L CVA Tenderness, R CVA Tenderness Extremity: Positive for: Normal ROM Neurologic/Psych: Positive for: Alert, Oriented - ECG ECG: Positive for: Interpreted By Me, Viewed By Me ECG Rhythm: Positive for: Normal QRS, Normal ST Segment, Sinus Rhythm O2 Sat by Pulse Oximetry: 98 Pulse Ox Interpretation: Normal - Progress ED Course And Treament: 1756: Taking some alternative medication diet pills. 1856: Stable. AAOx3. Pain free. Breathing much better. AAOx3. Fu with pcp. Disposition - Clinical Impression Clinical Impression: Asthma attack - Patient ED Disposition Is Patient to be Admitted: No Counseled Patient/Family Regarding: Studies Performed, Diagnosis, Need For Followup, Rx Given - Disposition Referrals: [facility] [Outside] - 11/01/17 Disposition: Routine/Home Disposition Time: 18:57 Condition: STABLE Additional Instructions: Return if not better in 3 days. Prescriptions: Albuterol Sulfate [Proair Hfa] 0.09 mg IH Q6H PRN #2 inh PRN Reason: Wheezing predniSONE [predniSONE Tab] 20 mg PO BID 5 Days tab Instructions: Asthma in Adults Forms: [facility] (Icelandic)
[2017-10-28] MEDS ORDERED: Albuterol-Ipratrop 3 mg / 0.5 (3 ml) UD ONE (17:58)
[2017-10-28 19:06] VITALS: BP 126/68; PULSE 89; TEMP 98.4; O2SAT 100
--- NOTE | 2017-10-30 11:38 | CARD ---
APPROVED REPORT EKG Measurement Heart [id number] <Conclusion> Normal sinus rhythm Normal ECG
== END 2017-10-28 19:07 | disposition home or self-care (01) ==
LOC: H.ER 17:30
DX: J45.901 Unspecified asthma with (acute) exacerbation (principal)
CPT/HCPCS: 93005; 94640; 96361; 96374; 99283; J2930; J7040

== ENCOUNTER 2017-12-03 15:44 | Emergency (ER) | payer MEDICAID ==
[2017-12-03 16:06] VITALS: BP 138/83; PULSE 93; RESP 22; TEMP 97.9; O2SAT 100
[2017-12-03] MEDS ORDERED: Albuterol-Ipratrop 3 mg / 0.5 (3 ml) UD ONE ×3 (16:32→17:40)
[2017-12-03] MEDS ORDERED: methylPREDNISolone 125 MG in Sodium Chloride 0.9% 50 ML IV STA (16:38)
[2017-12-03] MEDS ORDERED: Albuterol-Ipratrop 3 mg / 0.5 (3 ml) UD INH STA ×3 (16:38→17:31)
--- NOTE | 2017-12-03 16:51 | ED PDOC ---
HPI: SOB/CHF/COPD Time Seen by Provider: 12/03/17 16:34 Chief Complaint (Nursing): Shortness Of Breath Chief Complaint (Provider): SOB History Per: Patient History/Exam Limitations: no limitations Onset/Duration Of Symptoms: Days (3) Additional Complaint(s): Pt reports SOB X 3 days secondary to weather change, associated with minimal nonproductive cough. Denies fever, CP, palpitations. Lost her nebulizer and Prednisone. Against Medical Advice - AMA Patient Left Against Medical Advice: The patient declines admission to the hospital and wishes to leave the Emergency Department. This action is against my medical advice. This decision was made with informed refusal. The patient was told that admission to the hospital is necessary. Explanation of the reasons why were discussed. The risks of leaving were explained to the patient and include, but are not limited to, worsening of known or currently unknown conditions, permanent disability and from undiagnosed or untreated conditions. The patient has the capacity to make this informed decision and understands my explanation of the current medical problem and risks of leaving. The patient voluntarily accepts these risks and signed an AMA form documenting our conversation. The patient was given the opportunity to ask questions and reconsider. The patient was encouraged to return to the Emergency Department at any time for further care. Past Medical History Reviewed: Nursing Documentation, Vital Signs Vital Signs: Last Vital Signs Temp 97.9 F 12/03/17 16:04 Pulse 93 H 12/03/17 16:04 Resp 22 12/03/17 16:12 BP 138/83 12/03/17 16:04 Pulse Ox 100 12/03/17 16:52 - Medical History PMH: Asthma, COPD, Emphysema Denies: Chronic Kidney Disease - Family History Family History: States: Unknown Family Hx - Social History Current smoker - smoking cessation education provided: No - Home Medications Home Medications: Ambulatory Orders Medication Instructions Recorded Albuterol HFA [Ventolin HFA 90 1 puff IH ASDIR #1 unit 09/07/17 mcg/actuation (8 g)] Prednisone 50 mg PO DAILY #5 tablet 09/07/17 Albuterol Sulfate [Proair Hfa] 0.09 mg IH Q6H PRN #2 inh 10/28/17 predniSONE [predniSONE Tab] 20 mg PO BID 5 Days tab 10/28/17 Albuterol 0.5% [Albuterol 0.5% 3 ml IH Q6H PRN #30 neb 12/03/17 Inhal Liliana (2.5 mg/0.5 ml) UD] Albuterol HFA [Ventolin HFA 90 2 puff IH [id number] PRN #1 bottle 12/03/17 mcg/actuation (8 g)] Prednisone 50 mg PO DAILY #4 tab 12/03/17 - Allergies Allergies/Adverse Reactions: Allergies Allergy/AdvReac Type Severity Reaction Status Date / Time FISH Allergy SHORTNESS Verified 12/03/17 16:04 OF BREATH iodine Allergy SHORTNESS Verified 12/03/17 16:04 OF BREATH shellfish derived Allergy SHORTNESS Verified 12/03/17 16:04 OF BREATH seafood Allergy SHORTNESS Uncoded 09/07/17 13:33 OF BREATH Review of Systems Constitutional: Negative for: Fever, Chills Cardiovascular: Negative for: Chest Pain, Palpitations Respiratory: Positive for: Cough, Shortness of Breath. Negative for: Hemoptysis , Sputum Gastrointestinal: Negative for: Abdominal Pain Musculoskeletal: Negative for: Neck Pain, Back Pain Skin: Negative for: Rash, Lesions Neurological: Negative for: Weakness, Numbness, Headache, Dizziness Physical Exam - Reviewed Nursing Documentation Reviewed: Yes Vital Signs Reviewed: Yes - Physical Exam Appears: Positive for: Well, No Acute Distress (Speaking full sentences) Skin: Positive for: Normal Color, Warm, Dry Eye Exam: Positive for: Normal appearance, EOMI, PERRL Cardiovascular/Chest: Positive for: Regular Rate, Rhythm Respiratory: Negative for: Decreased Breath Sounds, Accessory Muscle Use, Crackles, Rales, Rhonchi, Wheezing, Respiratory Distress Extremity: Positive for: Normal ROM Neurologic/Psych: Positive for: Alert, Oriented - Laboratory Results Result Diagrams: 12/03/17 17:21 12/03/17 17:54 - ECG O2 Sat by Pulse Oximetry: 100 Medical Decision Making Medical Decision Makin yo female with wheezing. - Albuterol/atrovent nebs - Solumedrol - CXR Accession No. : [id number] Patient Name / ID : PAMELA Mack / [id number] Exam Date : 12/03/2017 16:37:50 ( Approved ) Study Comment : Sex / Age : F / 37Y Creator : Susu Martini MD Dictator : Susu Martini MD Supervisor Cigar Making Hand : Temporary Receptionist : Susu Martini MD Approver2 : Report Date : 12/03/2017 16:53:16 My Comment : HISTORY: COMPARISON: No prior. TECHNIQUE: Chest PA and lateral FINDINGS: LINES AND TUBES: None. LUNG AND PLEURA: The lungs are well inflated and clear. No pleural effusion or pneumothorax. HEART AND MEDIASTINUM: The heart is not enlarged. The hilar and mediastinal contours are within normal limits. SKELETAL STRUCTURES: The bony structures are within normal limits for the patient's age. VISUALIZED UPPER ABDOMEN: Normal. OTHER FINDINGS: None. IMPRESSION: No active pulmonary disease. Disposition - Clinical Impression Clinical Impression: Asthma exacerbation - Disposition Disposition: Against Medical Advice Disposition Time: 20:10 (.) Condition: UNKNOWN Prescriptions: Albuterol HFA [Ventolin HFA 90 mcg/actuation (8 g)] 2 puff IH [id number] PRN #1 bottle PRN Reason: Shortness Of Breath Albuterol 0.5% [Albuterol 0.5% Inhal Liliana (2.5 mg/0.5 ml) UD] 3 ml IH Q6H PRN # 30 neb PRN Reason: Shortness Of Breath Prednisone 50 mg PO DAILY #4 tab Forms: [facility] (Malagasy)
[2017-12-03 17:28] LABS: BASO # 0.1 K/uL (0.0-0.2); BASO % 1.1 % (0.0-2.0); EOS % 12.4 % (0.0-4.0); HEMOGLOBIN 13.9 g/dL (12.0-16.0); LYMPH % 24.1 % (20.0-40.0); MEAN CORPUSCULAR HEMOGLOBIN 29.9 pg (27.0-31.0); MEAN CORPUSCULAR HGB CONC 33.3 g/dL (33.0-37.0); MEAN PLATELET VOLUME 9.4 fl (7.2-11.7); MONO # 0.8 K/uL (0.0-0.8); MONO % 9.9 % (0.0-10.0); NEUT # 4.4 K/uL (1.8-7.0); NEUT % 52.5 % (50.0-75.0); RBC 4.66 Mil/uL (3.80-5.20); RED CELL DISTRIBUTION WIDTH 15.9 % (11.5-14.5); WHITE BLOOD COUNT 8.3 K/uL (4.8-10.8)
[2017-12-03 17:30] LABS: MEAN CELL VOLUME 89.8 fl (81.0-99.0)
[2017-12-03 18:11] LABS: ALB/GLOB RATIO 1.1 (1.0-2.1); ALBUMIN 3.9 g/dL (3.5-5.0); ALT/SGPT 32 U/L (9-52); AST/SGOT 24 U/L (14-36); BLOOD UREA NITROGEN 16 mg/dl (7-17); CALCIUM 9.1 mg/dL (8.4-10.2); GFR AFRICAN-AMERICAN > 60; GFR NON-AFRICAN AMERICAN > 60
--- NOTE | 2017-12-04 10:57 | CARD ---
APPROVED REPORT EKG Measurement Heart [id number] <Conclusion> Normal sinus rhythm Normal ECG
== END 2017-12-03 20:20 | disposition left against medical advice (07) ==
LOC: H.ER 15:44
DX: J45.901 Unspecified asthma with (acute) exacerbation (principal)
CPT/HCPCS: 71046; 80053; 85025; 93005; 94640; 96374; 99283; J2930

== ENCOUNTER 2017-12-16 23:55 | Emergency (ER) | payer MEDICAID ==
[2017-12-17] MEDS ORDERED: Albuterol-Ipratrop 3 mg / 0.5 (3 ml) UD IH STA ×2 (00:22→02:28)
--- NOTE | 2017-12-17 00:27 | ED PDOC ---
HPI: Asthma Time Seen by Provider: 12/17/17 00:16 Chief Complaint (Nursing): Shortness Of Breath Chief Complaint (Provider): asthma History Per: Patient History/Exam Limitations: no limitations Onset/Duration Of Symptoms: Days (3) Additional Complaint(s): 37 y/o female history of asthma presents for evaluation of persistent wheezing x 1 week. Patient states symptoms similar to previous asthma exacerbations and when this happen her inhaler alone does not work; states prednisone usually helps. Denies fever, cough, chest pain, shortness of breath, palpitations, leg pain/swelling, recent travel. Past Medical History Reviewed: Historical Data, Nursing Documentation, Vital Signs Vital Signs: Last Vital Signs Temp 98.3 F 12/17/17 00:04 Pulse 109 H 12/17/17 00:04 Resp 17 12/17/17 00:04 BP 132/86 12/17/17 00:04 Pulse Ox 98 12/17/17 00:04 - Medical History PMH: Asthma, COPD, Emphysema Denies: Chronic Kidney Disease - Surgical History Surgical History: No Surg Hx - Family History Family History: States: Unknown Family Hx - Home Medications Home Medications: Ambulatory Orders Medication Instructions Recorded Albuterol HFA [Ventolin HFA 90 1 puff IH ASDIR #1 unit 09/07/17 mcg/actuation (8 g)] Prednisone 50 mg PO DAILY #5 tablet 09/07/17 Albuterol Sulfate [Proair Hfa] 0.09 mg IH Q6H PRN #2 inh 10/28/17 predniSONE [predniSONE Tab] 20 mg PO BID 5 Days tab 10/28/17 Albuterol 0.5% [Albuterol 0.5% 3 ml IH Q6H PRN #30 neb 12/03/17 Inhal Liliana (2.5 mg/0.5 ml) UD] Albuterol HFA [Ventolin HFA 90 2 puff IH [id number] PRN #1 bottle 12/03/17 mcg/actuation (8 g)] Prednisone 50 mg PO DAILY #4 tab 12/03/17 Albuterol HFA [Ventolin HFA 90 1 puff IH Q4 PRN #1 inh 12/17/17 mcg/actuation (8 g)] predniSONE [Prednisone] 60 mg PO DAILY #12 tab 12/17/17 - Allergies Allergies/Adverse Reactions: Allergies Allergy/AdvReac Type Severity Reaction Status Date / Time FISH Allergy SHORTNESS Verified 12/03/17 16:04 OF BREATH iodine Allergy SHORTNESS Verified 12/03/17 16:04 OF BREATH shellfish derived Allergy SHORTNESS Verified 12/03/17 16:04 OF BREATH seafood Allergy SHORTNESS Uncoded 09/07/17 13:33 OF BREATH Review of Systems ROS Statement: Except As Marked, All Systems Reviewed And Found Negative Respiratory: Positive for: Wheezing Physical Exam - Reviewed Nursing Documentation Reviewed: Yes Vital Signs Reviewed: Yes - Physical Exam Appears: Positive for: Well, Non-toxic, No Acute Distress Head Exam: Positive for: ATRAUMATIC, NORMAL INSPECTION, NORMOCEPHALIC Skin: Positive for: Normal Color Eye Exam: Positive for: Normal appearance ENT: Positive for: Normal ENT Inspection Cardiovascular/Chest: Positive for: Regular Rate, Rhythm Respiratory: Positive for: Wheezing (diffuse expiratory wheezing) Gastrointestinal/Abdominal: Positive for: Normal Exam Back: Positive for: Normal Inspection Extremity: Positive for: Normal ROM Neurologic/Psych: Positive for: Alert, Oriented - ECG O2 Sat by Pulse Oximetry: 98 - Progress ED Course And Treament: Patient refusing IV or IM sterioids, requesting PO only duonebs, prednisone PO On re-eval, patient states she is feeling better; wheezing improved Patient educated on findings, discharged with rx prednsione, albuterol hfa Advised follow up PMD 2-3 days. Return precautions given Disposition - Clinical Impression Clinical Impression: Asthma exacerbation - Patient ED Disposition Is Patient to be Admitted: No Counseled Patient/Family Regarding: Diagnosis, Need For Followup, Rx Given - Disposition Referrals: Eliane Barrera MD [Primary Care Provider] - Disposition: Routine/Home Disposition Time: 03:21 Condition: IMPROVED Prescriptions: Albuterol HFA [Ventolin HFA 90 mcg/actuation (8 g)] 1 puff IH Q4 PRN #1 inh PRN Reason: Wheezing predniSONE [Prednisone] 60 mg PO DAILY #12 tab Instructions: Asthma in Adults Forms: [facility] ([place])
[2017-12-17] MEDS ORDERED: Albuterol-Ipratrop 3 mg / 0.5 (3 ml) UD ONE ×4 (01:12→03:03)
[2017-12-17 03:27] VITALS: BP 134/87; PULSE 92; RESP 18; TEMP 97.5; O2SAT 96
== END 2017-12-17 03:15 | disposition home or self-care (01) ==
LOC: H.ER 23:55
DX: J45.901 Unspecified asthma with (acute) exacerbation (principal)

== ENCOUNTER 2018-06-18 13:01 | Emergency (ER) | payer MEDICAID ==
[2018-06-18] MEDS ORDERED: Albuterol-Ipratrop 3 mg / 0.5 (3 ml) UD INH STA ×3 (13:33→13:46)
[2018-06-18] MEDS ORDERED: Albuterol-Ipratrop 3 mg / 0.5 (3 ml) UD ONE (13:40)
[2018-06-18 13:44] VITALS: O2SAT 98
--- NOTE | 2018-06-18 14:09 | ED PDOC ---
HPI: SOB/CHF/COPD Time Seen by Provider: 06/18/18 13:28 Chief Complaint (Nursing): Respiratory Distress Chief Complaint (Provider): Wheezing and cough History Per: Patient History/Exam Limitations: no limitations Onset/Duration Of Symptoms: Days (x 5) Current Symptoms Are (Timing): Still Present Initiating Event: Out Of Medications Current Respiratory Medications: Albuterol, Prednisone Additional Complaint(s): 38 year old female with a history of asthma presents to the ED with wheezing, cough and difficulty breathing for the last 5 days. Patient reports that she used a inhaler but ran out of all other medications including albuterol for her nebulizer treatments. Usually the weather exacerbates her symptoms. She has been admitted for asthma and intubated (x4) in the past. Denies chest pain and fever. PMD: [facility] Past Medical History Reviewed: Historical Data Vital Signs: Last Vital Signs Temp 97.5 F L 06/18/18 13:12 Pulse 102 H 06/18/18 13:12 Resp 22 06/18/18 13:12 BP 120/81 06/18/18 13:12 Pulse Ox 98 06/18/18 13:42 - Medical History PMH: Asthma, COPD, Emphysema Denies: Chronic Kidney Disease - Surgical History Surgical History: No Surg Hx - Family History Family History: States: Unknown Family Hx - Home Medications Home Medications: Ambulatory Orders Medication Instructions Recorded Albuterol HFA [Ventolin HFA 90 1 puff IH ASDIR #1 unit 09/07/17 mcg/actuation (8 g)] RX: Prednisone 50 mg PO DAILY #5 tablet 09/07/17 Albuterol Sulfate [Proair Hfa] 0.09 mg IH Q6H PRN #2 inh 10/28/17 RX: predniSONE [predniSONE Tab] 20 mg PO BID 5 Days tab 10/28/17 RX: Prednisone 50 mg PO DAILY #4 tab 12/03/17 RX: Albuterol HFA [Ventolin HFA 90 1 puff IH Q4 PRN #1 inh 12/17/17 mcg/actuation (8 g)] Albuterol 0.5% [Albuterol 0.5% 3 ml IH Q6H PRN #30 neb 06/18/18 Inhal Liliana (2.5 mg/0.5 ml) UD] Fluticasone/Salmeterol 250/50 1 puff IH Q12 #1 inh 06/18/18 [Advair Diskus] RX: Albuterol HFA [Ventolin HFA 90 2 puff IH [id number] PRN #1 bottle 06/18/18 mcg/actuation (8 g)] predniSONE [Prednisone] 60 mg PO DAILY #5 tab 06/18/18 - Allergies Allergies/Adverse Reactions: Allergies Allergy/AdvReac Type Severity Reaction Status Date / Time FISH Allergy SHORTNESS Verified 12/03/17 16:04 OF BREATH iodine Allergy SHORTNESS Verified 12/03/17 16:04 OF BREATH shellfish derived Allergy SHORTNESS Verified 12/03/17 16:04 OF BREATH seafood Allergy SHORTNESS Uncoded 09/07/17 13:33 OF BREATH Review of Systems ROS Statement: Except As Marked, All Systems Reviewed And Found Negative Constitutional: Negative for: Fever, Chills Cardiovascular: Negative for: Chest Pain Respiratory: Positive for: Cough, Wheezing Physical Exam - Reviewed Nursing Documentation Reviewed: Yes Vital Signs Reviewed: Yes - Physical Exam Appears: Positive for: No Acute Distress Head Exam: Positive for: ATRAUMATIC, NORMAL INSPECTION, NORMOCEPHALIC Skin: Positive for: Normal Color, Warm, Dry Eye Exam: Positive for: EOMI, Normal appearance, PERRL Neck: Positive for: Normal, Painless ROM, Supple Cardiovascular/Chest: Positive for: Regular Rate, Rhythm. Negative for: Murmur Respiratory: Positive for: Wheezing (bilaterally). Negative for: Respiratory Distress Gastrointestinal/Abdominal: Positive for: Normal Exam, Soft. Negative for: Tenderness Extremity: Positive for: Normal ROM (upper and lower). Negative for: Deformity Neurologic/Psych: Positive for: Alert, Oriented. Negative for: Motor/Sensory Deficits - ECG O2 Sat by Pulse Oximetry: 98 (RA) Pulse Ox Interpretation: Normal - Progress Re-evaluation Time: 15:25 Condition: Re-examined, Improved Medical Decision Making Medical Decision Makin:34 Impression: asthma exacerbation Initial Plan: --EKG --Duoneb 3 ml INH --Duoneb 3 ml INH --Solumedrol 125 mg IM --Peak flow pre/post --Peak flow pre/post 13:46 --Duoneb 3 ml INH --Peak flow pre/post Scribe Attestation: Documented by Dulce Rangel acting as a scribe for Rodolfo Gomes MD Provider Scribe Attestation: All medical record entries made by the Scribe were at my direction and personally dictated by me. I have reviewed the chart and agree that the record accurately reflects my personal performance of the history, physical exam, medical decision making, and the department course for this patient. I have also personally directed, reviewed, and agree with the discharge instructions and disposition. Disposition - Clinical Impression Clinical Impression: Asthma attack - Patient ED Disposition Is Patient to be Admitted: No Doctor Will See Patient In The: Office Counseled Patient/Family Regarding: Studies Performed, Diagnosis, Need For Followup - Disposition Referrals: [facility] [Outside] Disposition: Routine/Home Disposition Time: 15:29 Condition: GOOD Additional Instructions: AL SANTIAGO, thank you for letting us take care of you today. Your provider was Rodolfo Gomes MD and you were treated for POSS ASTHMA. The emergency medical care you received today was directed at your acute symptoms. If you were prescribed any medication, please fill it and take as directed. It may take several days for your symptoms to resolve. Return to the Emergency Department if your symptoms worsen, do not improve, or if you have any other problems. Please contact your doctor or call one of the physicians/clinics you have been referred to that are listed on the Patient Visit Information form that is included in your discharge packet. Bring any paperwork you were given at discharge with you along with any medications you are taking to your follow up visit. Our treatment cannot replace ongoing medical care by a primary care provider outside of the emergency department. Thank you for allowing the [facility] team to be part of your care today. If you had an X-Ray or CT scan: A Radiologist will review the ED reading if any change in treatment is needed we will contact you. If you had a blood, urine, or wound culture: It will take several days for the results, if any change in treatment is needed we will contact you. If you had an STI test: It will take 48 hours for the results. Please call after 1 week if you have not heard back. Prescriptions: RX: Albuterol HFA [Ventolin HFA 90 mcg/actuation (8 g)] 2 puff IH [id number] PRN #1 bottle PRN Reason: Shortness Of Breath Albuterol 0.5% [Albuterol 0.5% Inhal Liliana (2.5 mg/0.5 ml) UD] 3 ml IH Q6H PRN #30 neb PRN Reason: Shortness Of Breath Fluticasone/Salmeterol 250/50 [Advair Diskus] 1 puff IH Q12 #1 inh predniSONE [Prednisone] 60 mg PO DAILY #5 tab Instructions: Asthma in Adults Forms: [facility] (Latvian), [facility] ED School/Work Excuse
[2018-06-18 14:57] VITALS: RESP 19
[2018-06-18 15:43] VITALS: BP 126/78; PULSE 78; TEMP 98.1
--- NOTE | 2018-06-19 17:10 | CARD ---
APPROVED REPORT Date of service: 06/18/2018 EKG Measurement Heart [id number] <Conclusion> Sinus tachycardia Otherwise normal ECG
== END 2018-06-18 15:43 | disposition home or self-care (01) ==
LOC: H.ER 13:01
DX: J45.901 Unspecified asthma with (acute) exacerbation (principal); J44.9 Chronic obstructive pulmonary disease, unspecified; Z79.899 Other long term (current) drug therapy
CPT/HCPCS: 93005; 94150; 94640; 96372; 99285; J2930

== ENCOUNTER 2018-08-26 18:58 | Emergency (ER) | payer MEDICAID ==
[2018-08-26 19:10] VITALS: TEMP 97.8
[2018-08-26] MEDS ORDERED: Albuterol-Ipratrop 3 mg / 0.5 (3 ml) UD ONE (19:33)
[2018-08-26] MEDS ORDERED: Albuterol-Ipratrop 3 mg / 0.5 (3 ml) UD IH STA ×2 (19:40→19:41)
--- NOTE | 2018-08-26 19:47 | ED PDOC ---
HPI: SOB/CHF/COPD Time Seen by Provider: 08/26/18 19:37 Chief Complaint (Nursing): Shortness Of Breath Chief Complaint (Provider): Shortness Of Breath History Per: Patient History/Exam Limitations: no limitations Onset/Duration Of Symptoms: Days (x2) Current Symptoms Are (Timing): Still Present Additional Complaint(s): 38 year old female with pmHx of asthma, presents to ED with complaints of shortness of breath, wheezing, and nonproductive cough since yesterday. She denies any fever or chills. Patient states she ran out of her inhaler and nebulizers 3 days ago. PCP: none provided Past Medical History Reviewed: Historical Data, Nursing Documentation, Vital Signs Vital Signs: Last Vital Signs Temp 97.8 F 08/26/18 19:09 Pulse 95 H 08/26/18 19:09 Resp 18 08/26/18 19:09 BP 118/79 08/26/18 19:09 Pulse Ox 92 L 08/26/18 19:09 - Medical History PMH: Asthma, COPD, Emphysema Denies: Chronic Kidney Disease - Family History Family History: States: Unknown Family Hx - Home Medications Home Medications: Ambulatory Orders Medication Instructions Recorded Albuterol HFA [Ventolin HFA 90 1 puff IH ASDIR #1 unit 09/07/17 mcg/actuation (8 g)] Prednisone 50 mg PO DAILY #5 tablet 09/07/17 Albuterol Sulfate [Proair Hfa] 0.09 mg IH Q6H PRN #2 inh 10/28/17 predniSONE [predniSONE Tab] 20 mg PO BID 5 Days tab 10/28/17 Prednisone 50 mg PO DAILY #4 tab 12/03/17 Albuterol HFA [Ventolin HFA 90 1 puff IH Q4 PRN #1 inh 12/17/17 mcg/actuation (8 g)] Albuterol 0.5% [Albuterol 0.5% 3 ml IH Q6H PRN #30 neb 06/18/18 Inhal Liliana (2.5 mg/0.5 ml) UD] Albuterol HFA [Ventolin HFA 90 2 puff IH [id number] PRN #1 bottle 06/18/18 mcg/actuation (8 g)] Fluticasone/Salmeterol 250/50 1 puff IH Q12 #1 inh 06/18/18 [Advair Diskus] predniSONE [Prednisone] 60 mg PO DAILY #5 tab 06/18/18 Albuterol 0.083% [Albuterol 3 ml IH Q8 #1 neb 08/26/18 Sulfate 3 Ml] Albuterol HFA [Ventolin HFA 90 2 puff IH Q4H #1 puff 08/26/18 mcg/actuation (8 g)] Methylprednisolone [Medrol Dose 4 mg PO DAILY #21 tab 08/26/18 Pack (21 tabs)] - Allergies Allergies/Adverse Reactions: Allergies Allergy/AdvReac Type Severity Reaction Status Date / Time FISH Allergy SHORTNESS Verified 12/03/17 16:04 OF BREATH iodine Allergy SHORTNESS Verified 12/03/17 16:04 OF BREATH shellfish derived Allergy SHORTNESS Verified 12/03/17 16:04 OF BREATH seafood Allergy SHORTNESS Uncoded 09/07/17 13:33 OF BREATH Review of Systems ROS Statement: Except As Marked, All Systems Reviewed And Found Negative Constitutional: Negative for: Fever, Chills Respiratory: Positive for: Cough, Shortness of Breath, Wheezing. Negative for: Sputum Physical Exam - Reviewed Nursing Documentation Reviewed: Yes Vital Signs Reviewed: Yes - Physical Exam Appears: Positive for: No Acute Distress Head Exam: Positive for: ATRAUMATIC, NORMAL INSPECTION, NORMOCEPHALIC Skin: Positive for: Normal Color Eye Exam: Positive for: Normal appearance, EOMI, PERRL ENT: Positive for: Normal ENT Inspection Neck: Positive for: Normal Cardiovascular/Chest: Positive for: Regular Rate, Rhythm, Chest Non Tender Respiratory: Positive for: Wheezing (expiratory bilaterally). Negative for: Respiratory Distress Gastrointestinal/Abdominal: Positive for: Normal Exam, Soft. Negative for: Tenderness Back: Positive for: Normal Inspection Extremity: Positive for: Normal ROM (upper/lower) Neurologic/Psych: Positive for: Alert, Oriented - Laboratory Results Result Diagrams: 08/26/18 20:04 08/26/18 20:04 - ECG O2 Sat by Pulse Oximetry: 92 (RA) Pulse Ox Interpretation: Normal - Progress Re-evaluation Time: 21:00 Condition: Improved (Feels better, wishes to be dc'ed. Lungs scattered rhonchi. no wheezing or resp distress.) Medical Decision Making Medical Decision Making: Time: 1939 Initial Plan: work-up for asthma exacerbation R/O pneumonia. * EKG * Labs * Urine * CXR * Duoneb 3ml INH * Solu-medrol 125mg IV Scribe Attestation: Documented by Raquel Allison, acting as a scribe for Mendez Ramirez MD. Provider Scribe Attestation: All medical record entries made by the Scribe were at my direction and personally dictated by me. I have reviewed the chart and agree that the record accurately reflects my personal performance of the history, physical exam, medical decision making, and the department course for this patient. I have also personally directed, reviewed, and agree with the discharge instructions and disposition. Disposition - Clinical Impression Clinical Impression: Asthma exacerbation - Patient ED Disposition Is Patient to be Admitted: No - Disposition Referrals: [facility] [Outside] Disposition: Routine/Home Disposition Time: 21:01 Condition: FAIR Prescriptions: Albuterol 0.083% [Albuterol Sulfate 3 Ml] 3 ml IH Q8 #1 neb Albuterol HFA [Ventolin HFA 90 mcg/actuation (8 g)] 2 puff IH Q4H #1 puff Methylprednisolone [Medrol Dose Pack (21 tabs)] 4 mg PO DAILY #21 tab Instructions: Asthma in Adults Forms: [facility] (Greenlandic)
[2018-08-26] MEDS ORDERED: Promethazine/Cod 6.25mg-10mg/5ml Syr UD PO STA (19:53)
[2018-08-26] MEDS ORDERED: Promethazine/Cod 6.25mg-10mg/5ml Syr UD ONE (19:56)
[2018-08-26 20:11] LABS: BASO # 0.1 K/uL (0.0-0.2); BASO % 1.2 % (0.0-2.0); HEMOGLOBIN 13.6 g/dL (12.0-16.0); LYMPH # 2.1 K/uL (1.0-4.3); LYMPH % 34.1 % (20.0-40.0); MEAN CELL VOLUME 88.7 fl (81.0-99.0); MEAN CORPUSCULAR HEMOGLOBIN 29.3 pg (27.0-31.0); MEAN PLATELET VOLUME 9.3 fl (7.2-11.7); MONO # 0.6 K/uL (0.0-0.8); MONO % 9.7 % (0.0-10.0); NEUT # 2.3 K/uL (1.8-7.0); NRBC % 0.1 % (0.0-0.0); RBC 4.65 Mil/uL (3.80-5.20); RED CELL DISTRIBUTION WIDTH 15.1 % (11.5-14.5); WHITE BLOOD COUNT 6.2 K/uL (4.8-10.8)
[2018-08-26 20:32] LABS: ALB/GLOB RATIO 1.1 (1.0-2.1); ALBUMIN 4.4 g/dL (3.5-5.0); ALT/SGPT 18 U/L (9-52); AST/SGOT 23 U/L (14-36); BLOOD UREA NITROGEN 19 mg/dl (7-17); CALCIUM 9.3 mg/dL (8.4-10.2); GFR NON-AFRICAN AMERICAN > 60
[2018-08-26 21:13] VITALS: BP 131/78; PULSE 101; RESP 18; O2SAT 98
--- NOTE | 2018-08-27 08:36 | RAD ---
Date of service: 08/26/2018 HISTORY: SOB COMPARISON: No prior. TECHNIQUE: Chest PA and lateral FINDINGS: LUNGS: No active pulmonary disease. PLEURA: No significant pleural effusion identified. No pneumothorax apparent. CARDIOVASCULAR: No aortic atherosclerotic calcification present. Normal cardiac size. No pulmonary vascular congestion. OSSEOUS STRUCTURES: No significant abnormalities. VISUALIZED UPPER ABDOMEN: Normal. OTHER FINDINGS: None. IMPRESSION: No active disease.
--- NOTE | 2018-08-27 13:24 | CARD ---
APPROVED REPORT Date of service: 08/26/2018 EKG Measurement Heart [id number] <Conclusion> Normal sinus rhythm Normal ECG
== END 2018-08-26 21:12 | disposition home or self-care (01) ==
LOC: H.ER 18:58
DX: J45.901 Unspecified asthma with (acute) exacerbation (principal)
CPT/HCPCS: 71046; 80053; 81025; 85025; 87804; 93005; 94150; 94640; 96374; 99284; J2930

== ENCOUNTER 2018-09-11 09:37 | Emergency (ER) | payer MEDICAID ==
[2018-09-11 09:45] VITALS: TEMP 97.4
[2018-09-11] MEDS ORDERED: Albuterol 0.083% Inhal Sol (2.5 mg/3 mL) UD INH STA ×3 (09:52)
[2018-09-11] MEDS ORDERED: Albuterol 0.083% Inhal Sol (2.5 mg/3 mL) UD ONE (09:59)
--- NOTE | 2018-09-11 10:07 | ED PDOC ---
HPI: Asthma Time Seen by Provider: 09/11/18 09:51 Chief Complaint (Nursing): Shortness Of Breath Chief Complaint (Provider): Asthma History Per: Patient History/Exam Limitations: no limitations Onset/Duration Of Symptoms: Hrs Current Symptoms Are (Timing): Still Present Additional Complaint(s): Patient is a 38 y/o female with a PMHx of asthma, COPD, and emphysema who p resents to the ED for evaluation of wheezing and shortness of breath, onset this morning at 8:00. 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 Patient was seen in the ED recently for an asthma attack and was given Prednisone. Patient states she has been relying on her pump for relief. Of note, patient has not received flu vaccine. PCP: Julio Rowell Past Medical History Reviewed: Historical Data, Nursing Documentation, Vital Signs Vital Signs: Last Vital Signs Temp 97.4 F L 09/11/18 09:44 Pulse 91 H 09/11/18 09:44 Resp 18 09/11/18 09:44 BP 135/80 09/11/18 09:44 Pulse Ox 99 09/11/18 09:44 - Medical History PMH: Asthma, COPD, Emphysema Denies: Chronic Kidney Disease - Surgical History Surgical History: No Surg Hx - Family History Family History: States: Other Other Family History: asthma (aunt from mother's side from asthma attack) - Social History Current smoker - smoking cessation education provided: No - Immunization History Hx Influenza Vaccination: No - Home Medications Home Medications: Ambulatory Orders Medication Instructions Recorded Albuterol HFA [Ventolin HFA 90 1 puff IH ASDIR #1 unit 09/07/17 mcg/actuation (8 g)] Prednisone 50 mg PO DAILY #5 tablet 09/07/17 Albuterol Sulfate [Proair Hfa] 0.09 mg IH Q6H PRN #2 inh 10/28/17 predniSONE [predniSONE Tab] 20 mg PO BID 5 Days tab 10/28/17 Prednisone 50 mg PO DAILY #4 tab 12/03/17 Albuterol HFA [Ventolin HFA 90 1 puff IH Q4 PRN #1 inh 12/17/17 mcg/actuation (8 g)] Albuterol 0.5% [Albuterol 0.5% 3 ml IH Q6H PRN #30 neb 12/08/18 Inhal Liliana (2.5 mg/0.5 ml) UD] Albuterol HFA [Ventolin HFA 90 2 puff IH [id number] PRN #1 bottle 06/18/18 mcg/actuation (8 g)] Fluticasone/Salmeterol 250/50 1 puff IH Q12 #1 inh 06/18/18 [Advair Diskus] predniSONE [Prednisone] 60 mg PO DAILY #5 tab 06/18/18 Albuterol 0.083% [Albuterol 3 ml IH Q8 #1 neb 08/26/18 Sulfate 3 Ml] Albuterol HFA [Ventolin HFA 90 2 puff IH Q4H #1 puff 08/26/18 mcg/actuation (8 g)] Methylprednisolone [Medrol Dose 4 mg PO DAILY #21 tab 08/26/18 Pack (21 tabs)] Albuterol Sulfate [Albuterol 2 puff IH Q4H #1 hfa.aer.ad 09/11/18 Sulfate Hfa] Fluticasone Propionate [Flovent 2 puff IH BID #1 unit 09/11/18 Hfa] predniSONE [predniSONE Tab] 40 mg PO DAILY #10 tab 09/11/18 - Allergies Allergies/Adverse Reactions: Allergies Allergy/AdvReac Type Severity Reaction Status Date / Time FISH Allergy SHORTNESS Verified 12/03/17 16:04 OF BREATH iodine Allergy SHORTNESS Verified 12/03/17 16:04 OF BREATH shellfish derived Allergy SHORTNESS Verified 12/03/17 16:04 OF BREATH seafood Allergy SHORTNESS Uncoded 09/07/17 13:33 OF BREATH Review of Systems ROS Statement: Except As Marked, All Systems Reviewed And Found Negative Respiratory: Positive for: Shortness of Breath, Wheezing Physical Exam - Reviewed Nursing Documentation Reviewed: Yes Vital Signs Reviewed: Yes - Physical Exam Appears: Positive for: Non-toxic, No Acute Distress Head Exam: Positive for: ATRAUMATIC, NORMAL INSPECTION, NORMOCEPHALIC Skin: Positive for: Normal Color, Warm, Dry Eye Exam: Positive for: EOMI, Normal appearance, PERRL Neck: Positive for: Normal, Painless ROM, Supple Cardiovascular/Chest: Positive for: Regular Rate, Rhythm. Negative for: Murmur Respiratory: Positive for: Wheezing (expiratory ), Other (prolonged expiratory phase with good air intake) Gastrointestinal/Abdominal: Positive for: Normal Exam, Soft. Negative for: Tenderness Extremity: Positive for: Normal ROM. Negative for: Pedal Edema, Deformity Neurologic/Psych: Positive for: Alert, Oriented - ECG ECG Rhythm: Positive for: Normal QRS, Normal ST Segment, Sinus Rhythm Rate: 96 O2 Sat by Pulse Oximetry: 99 (RA) Pulse Ox Interpretation: Normal - Progress Re-evaluation Time: 12:44 Condition: Re-examined, Improved Medical Decision Making Medical Decision Making: Time: 950 Impression: Asthma Exacerbation Plan: EKG Albuterol 2.5 mg INH (x3) SOLU-Medrol 125 mg IVP Peak Flow Pre/Post TX .Pre/Post Treatment (x3) Scribe Attestation: Documented by Bola Delaney, acting as a scribe for Alesia Cronin MD. Provider Scribe Attestation: All medical record entries made by the Scribe were at my direction and personally dictated by me. I have reviewed the chart and agree that the record accurately reflects my personal performance of the history, physical exam, medical decision making, and the department course for this patient. I have also personally directed, reviewed, and agree with the discharge instructions and disposition. Disposition - Clinical Impression Clinical Impression: Persistent asthma with acute exacerbation - Patient ED Disposition Is Patient to be Admitted: No Doctor Will See Patient In The: Office Counseled Patient/Family Regarding: Diagnosis, Need For Followup - Disposition Disposition: Routine/Home Disposition Time: 12:45 Condition: IMPROVED Prescriptions: Albuterol Sulfate [Albuterol Sulfate Hfa] 2 puff IH Q4H #1 hfa.aer.ad Fluticasone Propionate [Flovent Hfa] 2 puff IH BID #1 unit predniSONE [predniSONE Tab] 40 mg PO DAILY #10 tab Instructions: Asthma in Adults Forms: [facility] (Ukrainian) - POA Present On Arrival: None
[2018-09-11] MEDS ORDERED: Magnesium Sulfate 2 gm/50 ml 2 GM/50 ML BAG IVPB ONE (10:53)
[2018-09-11 12:33] VITALS: BP 132/85; RESP 18
[2018-09-11 12:44] VITALS: PULSE 96; O2SAT 99
--- NOTE | 2018-09-12 07:56 | CARD ---
APPROVED REPORT Date of service: 09/11/2018 EKG Measurement Heart [id number] <Conclusion> Normal sinus rhythm Normal ECG
== END 2018-09-11 12:51 | disposition home or self-care (01) ==
LOC: H.ER 09:37
DX: J45.901 Unspecified asthma with (acute) exacerbation (principal); J44.9 Chronic obstructive pulmonary disease, unspecified; Z79.899 Other long term (current) drug therapy; J43.9 Emphysema, unspecified
CPT/HCPCS: 93005; 94640; 96365; 96375; 99284; J2930

== ENCOUNTER 2018-10-14 12:16 | Emergency (ER) | payer MEDICAID ==
[2018-10-14 12:23] VITALS: BP 120/78; PULSE 89; RESP 19; TEMP 97.5; O2SAT 100
--- NOTE | 2018-10-14 12:49 | ED PDOC ---
HPI: CCC, URI, Sore Throat Time Seen by Provider: 10/14/18 12:41 Chief Complaint (Nursing): Cough, Cold, Congestion History Per: Patient Onset/Duration Of Symptoms: Days (5) Current Symptoms Are (Timing): Intermittent Episodes Associated Symptoms: Cough, Sputum (Yellow), Diarrhea. denies: Fever Severity: Mild Additional Complaint(s): Cough productive yellow sputum x 5 days assoc with diarrhea. Denies fever, or SOB. Right sided chest pain when coughing. Past Medical History Vital Signs: Last Vital Signs Temp 97.5 F L 10/14/18 12:19 Pulse 89 10/14/18 12:19 Resp 19 10/14/18 12:19 BP 120/78 10/14/18 12:19 Pulse Ox 100 10/14/18 12:19 - Medical History PMH: Asthma, COPD, Emphysema Denies: Chronic Kidney Disease - Family History Family History: States: Unknown Family Hx - Immunization History Hx Influenza Vaccination: No - Home Medications Home Medications: Ambulatory Orders Medication Instructions Recorded Albuterol HFA [Ventolin HFA 90 1 puff IH ASDIR #1 unit 09/07/17 mcg/actuation (8 g)] Prednisone 50 mg PO DAILY #5 tablet 09/07/17 Albuterol Sulfate [Proair Hfa] 0.09 mg IH Q6H PRN #2 inh 10/28/17 predniSONE [predniSONE Tab] 20 mg PO BID 5 Days tab 10/28/17 Prednisone 50 mg PO DAILY #4 tab 12/03/17 Albuterol HFA [Ventolin HFA 90 1 puff IH Q4 PRN #1 inh 12/17/17 mcg/actuation (8 g)] Albuterol 0.5% [Albuterol 0.5% 3 ml IH Q6H PRN #30 neb 06/18/18 Inhal Liliana (2.5 mg/0.5 ml) UD] Albuterol HFA [Ventolin HFA 90 2 puff IH [id number] PRN #1 bottle 06/18/18 mcg/actuation (8 g)] Fluticasone/Salmeterol 250/50 1 puff IH Q12 #1 inh 06/18/18 [Advair Diskus] predniSONE [Prednisone] 60 mg PO DAILY #5 tab 06/18/18 Albuterol 0.083% [Albuterol 3 ml IH Q8 #1 neb 08/26/18 Sulfate 3 Ml] Albuterol HFA [Ventolin HFA 90 2 puff IH Q4H #1 puff 08/26/18 mcg/actuation (8 g)] Methylprednisolone [Medrol Dose 4 mg PO DAILY #21 tab 08/26/18 Pack (21 tabs)] Albuterol Sulfate [Albuterol 2 puff IH Q4H #1 hfa.aer.ad 09/11/18 Sulfate Hfa] Fluticasone Propionate [Flovent 2 puff IH BID #1 unit 09/11/18 Hfa] predniSONE [predniSONE Tab] 40 mg PO DAILY #10 tab 09/11/18 Albuterol HFA [Ventolin HFA 90 2 puff IH Q4H #1 puff 10/14/18 mcg/actuation (8 g)] Azithromycin [Zithromax] 250 mg PO DAILY #6 tab 10/14/18 - Allergies Allergies/Adverse Reactions: Allergies Allergy/AdvReac Type Severity Reaction Status Date / Time FISH Allergy SHORTNESS Verified 12/03/17 16:04 OF BREATH iodine Allergy SHORTNESS Verified 12/03/17 16:04 OF BREATH shellfish derived Allergy SHORTNESS Verified 12/03/17 16:04 OF BREATH seafood Allergy SHORTNESS Uncoded 09/07/17 13:33 OF BREATH Review of Systems ROS Statement: Except As Marked, All Systems Reviewed And Found Negative Constitutional: Negative for: Fever Respiratory: Positive for: Cough, Pleuritic Pain. Negative for: Shortness of Breath, Wheezing Physical Exam - Reviewed Nursing Documentation Reviewed: Yes Vital Signs Reviewed: Yes - Physical Exam Appears: Positive for: Non-toxic, No Acute Distress Head Exam: Positive for: ATRAUMATIC, NORMAL INSPECTION, NORMOCEPHALIC Skin: Positive for: Normal Color, Warm, DRY Eye Exam: Positive for: EOMI, Normal appearance, PERRL ENT: Positive for: Normal ENT Inspection Neck: Positive for: Normal, Painless ROM Cardiovascular/Chest: Positive for: Regular Rate, Rhythm Respiratory: Positive for: Rhonchi (Scattered rhonchi right side. No wheezing or respiratory distress.) Gastrointestinal/Abdominal: Positive for: Normal Exam, Soft Back: Positive for: Normal Inspection Extremity: Positive for: Normal ROM Neurological/Psych: Positive for: Awake, Alert, Normal Tone - ECG O2 Sat by Pulse Oximetry: 100 Disposition - Clinical Impression Clinical Impression: Bronchitis - Patient ED Disposition Is Patient to be Admitted: No Counseled Patient/Family Regarding: Studies Performed, Diagnosis, Need For Followup, Rx Given - Disposition Referrals: [facility] [Outside] Disposition: Routine/Home Disposition Time: 13:57 Condition: FAIR Prescriptions: Albuterol HFA [Ventolin HFA 90 mcg/actuation (8 g)] 2 puff IH Q4H #1 puff Azithromycin [Zithromax] 250 mg PO DAILY #6 tab Instructions: Acute Bronchitis Forms: [employer] (Sri Lankan)
--- NOTE | 2018-10-14 13:29 | RAD ---
Date of service: 10/14/2018 HISTORY: Cough COMPARISON: Comparison chest 08/26/2018 TECHNIQUE: Chest PA and lateral views FINDINGS: LUNGS: No active pulmonary disease. PLEURA: No significant pleural effusion identified. No pneumothorax apparent. CARDIOVASCULAR: No aortic atherosclerotic calcification present. Normal cardiac size. No pulmonary vascular congestion. OSSEOUS STRUCTURES: No significant abnormalities. VISUALIZED UPPER ABDOMEN: Normal. OTHER FINDINGS: None. IMPRESSION: No active disease.
== END 2018-10-14 14:21 | disposition home or self-care (01) ==
LOC: H.ER 12:16
DX: J40 Bronchitis, not specified as acute or chronic (principal)

== ENCOUNTER 2018-11-22 15:11 | Emergency (ER) | payer MEDICAID ==
[2018-11-22] MEDS ORDERED: Albuterol-Ipratrop 3 mg / 0.5 (3 ml) UD INH STA ×4 (15:39→19:39)
[2018-11-22] MEDS ORDERED: Albuterol-Ipratrop 3 mg / 0.5 (3 ml) UD ONE ×2 (15:47→18:43)
[2018-11-22] MEDS ORDERED: Magnesium Sulfate 2 gm/50 ml 2 GM/50 ML BAG IVPB ONE (17:00)
[2018-11-22] MEDS ORDERED: Magnesium Sulfate 2 gm/50 ml 2 GM/50 ML BAG ONE (17:18)
--- NOTE | 2018-11-22 19:46 | ED PDOC ---
HPI: SOB/CHF/COPD Time Seen by Provider: 11/22/18 15:39 Chief Complaint (Nursing): Shortness Of Breath Chief Complaint (Provider): Shortness of Breath History Per: Patient History/Exam Limitations: no limitations Onset/Duration Of Symptoms: Days Additional Complaint(s): 38 year old female with history of asthma presents to ED with worsening SOB x2 days. Patient reports using nebulizer treatments at home but they did not offer any relief. She has previously had 4 intubations, the last one was several years ago and she was hospitalized about an year ago. PMD: none provided Past Medical History Reviewed: Historical Data, Nursing Documentation, Vital Signs Vital Signs: Last Vital Signs Temp 97.7 F 11/22/18 15:25 Pulse 89 11/22/18 15:25 Resp 17 11/22/18 16:00 BP 126/86 11/22/18 15:25 Pulse Ox 96 11/22/18 16:00 Primary Care Provider: Non [facility] Provider, - Medical History PMH: Asthma, COPD, Emphysema Denies: Chronic Kidney Disease - Surgical History Surgical History: No Surg Hx - Family History Family History: States: Unknown Family Hx - Social History Current smoker - smoking cessation education provided: No Alcohol: None Drugs: Denies - Immunization History Hx Influenza Vaccination: No - Home Medications Home Medications: Ambulatory Orders Medication Instructions Recorded Albuterol HFA [Ventolin HFA 90 1 puff IH ASDIR #1 unit 09/07/17 mcg/actuation (8 g)] Prednisone 50 mg PO DAILY #5 tablet 09/07/17 Albuterol Sulfate [Proair Hfa] 0.09 mg IH Q6H PRN #2 inh 10/28/17 predniSONE [predniSONE Tab] 20 mg PO BID 5 Days tab 10/28/17 Prednisone 50 mg PO DAILY #4 tab 12/03/17 Albuterol HFA [Ventolin HFA 90 1 puff IH Q4 PRN #1 inh 12/17/17 mcg/actuation (8 g)] Albuterol 0.5% [Albuterol 0.5% 3 ml IH Q6H PRN #30 neb 06/18/18 Inhal Liliana (2.5 mg/0.5 ml) UD] Albuterol HFA [Ventolin HFA 90 2 puff IH [id number] PRN #1 bottle 06/18/18 mcg/actuation (8 g)] Fluticasone/Salmeterol 250/50 1 puff IH Q12 #1 inh 06/18/18 [Advair Diskus] predniSONE [Prednisone] 60 mg PO DAILY #5 tab 06/18/18 Albuterol 0.083% [Albuterol 3 ml IH Q8 #1 neb 08/26/18 Sulfate 3 Ml] Albuterol HFA [Ventolin HFA 90 2 puff IH Q4H #1 puff 08/26/18 mcg/actuation (8 g)] Methylprednisolone [Medrol Dose 4 mg PO DAILY #21 tab 08/26/18 Pack (21 tabs)] Albuterol Sulfate [Albuterol 2 puff IH Q4H #1 hfa.aer.ad 09/11/18 Sulfate Hfa] Fluticasone Propionate [Flovent 2 puff IH BID #1 unit 09/11/18 Hfa] predniSONE [predniSONE Tab] 40 mg PO DAILY #10 tab 09/11/18 Albuterol HFA [Ventolin HFA 90 2 puff IH Q4H #1 puff 10/14/18 mcg/actuation (8 g)] Azithromycin [Zithromax] 250 mg PO DAILY #6 tab 10/14/18 Albuterol HFA [Ventolin HFA 90 2 puff IH [id number] #1 pump 11/22/18 mcg/actuation (8 g)] predniSONE [predniSONE Tab] 60 mg PO DAILY #15 tab 11/22/18 - Allergies Allergies/Adverse Reactions: Allergies Allergy/AdvReac Type Severity Reaction Status Date / Time FISH Allergy SHORTNESS Verified 11/22/18 15:26 OF BREATH iodine Allergy SHORTNESS Verified 11/22/18 15:26 OF BREATH shellfish derived Allergy SHORTNESS Verified 11/22/18 15:26 OF BREATH seafood Allergy SHORTNESS Uncoded 11/22/18 15:26 OF BREATH Review of Systems ROS Statement: Except As Marked, All Systems Reviewed And Found Negative Respiratory: Positive for: Shortness of Breath Physical Exam - Reviewed Nursing Documentation Reviewed: Yes Vital Signs Reviewed: Yes - Physical Exam Appears: Positive for: No Acute Distress Head Exam: Positive for: ATRAUMATIC, NORMOCEPHALIC Skin: Positive for: Normal Color, Warm, Dry Eye Exam: Positive for: EOMI, Normal appearance, PERRL ENT: Positive for: Normal ENT Inspection Neck: Positive for: Normal, Supple Cardiovascular/Chest: Positive for: Regular Rate, Rhythm. Negative for: Murmur Respiratory: Positive for: Decreased Breath Sounds (decreased air entry), Wheezing (bilaterally) Gastrointestinal/Abdominal: Positive for: Normal Exam, Soft. Negative for: Tenderness Back: Positive for: Normal Inspection. Negative for: L CVA Tenderness, R CVA Tenderness, Vertebral Tenderness Extremity: Positive for: Normal ROM. Negative for: Pedal Edema, Deformity Neurological/Psych: Positive for: Awake, Alert, Oriented (x3). Negative for: Motor/Sensory Deficits - ECG O2 Sat by Pulse Oximetry: 96 (RA) Pulse Ox Interpretation: Normal Medical Decision Making Medical Decision Making: Time: 1539 Initial Impression: workup for asthma exacerbation Initial Plan: --EKG --Albuterol --Prednisone 1840 Patient still with saturations in low 90s, magnesium sulfate administered, possible admission if not improved 1946 Symptoms improved, saturation and peak flow improved, patient is no longer wheezing, ambulatory without being SOB, patient states she will not stay for admission, will follow up with PMD in 3 days, discharged with Prednisone and Albuterol Scribe Attestation: Documented by Bryon Mayer acting as a scribe for Karon Batres MD. Provider Scribe Attestation: All medical record entries made by the Scribe were at my direction and perso lorraine dictated by me. I have reviewed the chart and agree that the record accurately reflects my personal performance of the history, physical exam, medical decision making, and the department course for this patient. I have also personally directed, reviewed, and agree with the discharge instructions and disposition. Disposition - Clinical Impression Clinical Impression: Asthma exacerbation - Patient ED Disposition Is Patient to be Admitted: No - Disposition Disposition: Routine/Home Disposition Time: 19:47 Condition: IMPROVED Prescriptions: Albuterol HFA [Ventolin HFA 90 mcg/actuation (8 g)] 2 puff IH [id number] #1 pump predniSONE [predniSONE Tab] 60 mg PO DAILY #15 tab Instructions: Asthma, Adult (DC) Forms: [facility] [employer] (Spanish) Print Language: CANADIAN
[2018-11-22 20:02] VITALS: BP 130/88; PULSE 84; RESP 18; TEMP 98.1
--- NOTE | 2018-11-23 11:54 | CARD ---
APPROVED REPORT Date of service: 11/22/2018 EKG Measurement Heart [id number] <Conclusion> Normal sinus rhythm with sinus arrhythmia Normal ECG
[2018-11-25 05:17] VITALS: O2SAT 96
== END 2018-11-22 20:01 | disposition home or self-care (01) ==
LOC: H.ER 15:11
DX: J45.901 Unspecified asthma with (acute) exacerbation (principal); J44.9 Chronic obstructive pulmonary disease, unspecified; Z79.899 Other long term (current) drug therapy

== ENCOUNTER 2018-12-08 17:56 | Emergency (ER) | payer MEDICAID ==
[2018-12-08] MEDS ORDERED: Albuterol-Ipratrop 3 mg / 0.5 (3 ml) UD INH STA (18:17)
--- NOTE | 2018-12-08 18:35 | ED PDOC ---
HPI: SOB/CHF/COPD Time Seen by Provider: 12/08/18 18:10 Chief Complaint (Nursing): Respiratory Distress Chief Complaint (Provider): Asthma Exacerbation History Per: Patient History/Exam Limitations: no limitations Onset/Duration Of Symptoms: Days Additional Complaint(s): 38 year old female reports to ED with asthma exacerbation. Patient reports getting sick about x2 days with chest tightness and cough productive with yellow sputum but denies any hemoptysis, runny nose or fever. She has been using Albuterol almost continuously yesterday but today it was not even helping so she came into ED. Patient reports ever since insurance stopped paying for Advair, asthma attacks have been frequent. She was also seen earlier this month for the same issue and states taking Singulair daily. PMD: [facility]io [facility] Past Medical History Reviewed: Historical Data, Nursing Documentation, Vital Signs Vital Signs: Last Vital Signs Temp 98.3 F 12/08/18 18:03 Pulse 91 H 12/08/18 18:03 Resp 18 12/08/18 18:03 BP 144/85 12/08/18 18:03 Pulse Ox 96 12/08/18 18:03 Primary Care Provider: FAMILY PROVIDER,NO - Medical History PMH: Asthma, COPD, Emphysema Denies: Chronic Kidney Disease - Surgical History Surgical History: No Surg Hx - Family History Family History: States: Unknown Family Hx Other Family History: Asthma - Social History Current smoker - smoking cessation education provided: No Alcohol: None Drugs: Denies - Immunization History Hx Influenza Vaccination: No - Home Medications Home Medications: Ambulatory Orders Medication Instructions Recorded Albuterol HFA [Ventolin HFA 90 1 puff IH ASDIR #1 unit 09/07/17 mcg/actuation (8 g)] Prednisone 50 mg PO DAILY #5 tablet 09/07/17 Albuterol Sulfate [Proair Hfa] 0.09 mg IH Q6H PRN #2 inh 10/28/17 predniSONE [predniSONE Tab] 20 mg PO BID 5 Days tab 10/28/17 Prednisone 50 mg PO DAILY #4 tab 12/03/17 Albuterol HFA [Ventolin HFA 90 1 puff IH Q4 PRN #1 inh 12/17/17 mcg/actuation (8 g)] Albuterol 0.5% [Albuterol 0.5% 3 ml IH Q6H PRN #30 neb 06/18/18 Inhal Liliana (2.5 mg/0.5 ml) UD] Albuterol HFA [Ventolin HFA 90 2 puff IH [id number] PRN #1 bottle 06/18/18 mcg/actuation (8 g)] Fluticasone/Salmeterol 250/50 1 puff IH Q12 #1 inh 06/18/18 [Advair Diskus] predniSONE [Prednisone] 60 mg PO DAILY #5 tab 06/18/18 Albuterol 0.083% [Albuterol 3 ml IH Q8 #1 neb 08/26/18 Sulfate 3 Ml] Albuterol HFA [Ventolin HFA 90 2 puff IH Q4H #1 puff 08/26/18 mcg/actuation (8 g)] Methylprednisolone [Medrol Dose 4 mg PO DAILY #21 tab 08/26/18 Pack (21 tabs)] Albuterol Sulfate [Albuterol 2 puff IH Q4H #1 hfa.aer.ad 09/11/18 Sulfate Hfa] Fluticasone Propionate [Flovent 2 puff IH BID #1 unit 09/11/18 Hfa] predniSONE [predniSONE Tab] 40 mg PO DAILY #10 tab 09/11/18 Albuterol HFA [Ventolin HFA 90 2 puff IH Q4H #1 puff 10/14/18 mcg/actuation (8 g)] Azithromycin [Zithromax] 250 mg PO DAILY #6 tab 10/14/18 Albuterol HFA [Ventolin HFA 90 2 puff IH [id number] #1 pump 11/22/18 mcg/actuation (8 g)] predniSONE [predniSONE Tab] 60 mg PO DAILY #15 tab 11/22/18 Albuterol HFA [Ventolin HFA 90 2 puff IH Q4H PRN #1 inh 12/08/18 mcg/actuation (8 g)] Fluticasone/Salmeterol [Airduo 1 puff IH BID #1 aer.pow.ba 12/08/18 Respiclick [id number] Mcg] Prednisone 50 mg PO DAILY #4 tablet 12/08/18 - Allergies Allergies/Adverse Reactions: Allergies Allergy/AdvReac Type Severity Reaction Status Date / Time FISH Allergy SHORTNESS Verified 12/08/18 18:05 OF BREATH iodine Allergy SHORTNESS Verified 12/08/18 18:05 OF BREATH shellfish derived Allergy SHORTNESS Verified 12/08/18 18:05 OF BREATH seafood Allergy SHORTNESS Uncoded 12/08/18 18:05 OF BREATH Review of Systems ROS Statement: Except As Marked, All Systems Reviewed And Found Negative Constitutional: Negative for: Fever ENT: Negative for: Nose Discharge Cardiovascular: Positive for: Chest Pain (tightness) Respiratory: Positive for: Cough (productive with yellow sputum). Negative for: Hemoptysis Physical Exam - Reviewed Nursing Documentation Reviewed: Yes Vital Signs Reviewed: Yes - Physical Exam Appears: Positive for: No Acute Distress Head Exam: Positive for: ATRAUMATIC, NORMOCEPHALIC Skin: Positive for: Warm, Dry Eye Exam: Positive for: EOMI, PERRL ENT: Positive for: Pharynx Is (clear). Negative for: Tonsillar Exudate, Tonsillar Swelling Neck: Positive for: Painless ROM, Supple Cardiovascular/Chest: Positive for: Regular Rate, Rhythm. Negative for: Murmur Respiratory: Positive for: Rhonchi, Wheezing (diffuse expiratory). Negative for: Accessory Muscle Use Gastrointestinal/Abdominal: Positive for: Soft. Negative for: Tenderness Back: Positive for: Normal Inspection. Negative for: Decreased ROM Extremity: Positive for: Normal ROM. Negative for: Pedal Edema Lymphatic: Negative for: Adenopathy Neurological/Psych: Positive for: Awake, Alert. Negative for: Motor/Sensory Deficits - ECG O2 Sat by Pulse Oximetry: 96 (RA) Pulse Ox Interpretation: Normal Medical Decision Making Medical Decision Making: Time: 1829 Initial Impression: asthma exacerbation Ddx: Initial Plan: --Patient requesting generic version of Advair which I agree would help with symptoms --EKG --Duoneb --SOLU-Medrol Pt felt better after ER treatment and stable for discharge home. She reports to me that sometimes when she stands up from prolonged sitting she senses cramping sensation in her legs, resolves with movement. Advised to increase fluid hydration and increase intake of high potassium foods because excessive use of albuterol may be disrupting potassium levels. Leg exam normal at this time. Scribe Attestation: Documented by Bryon Mayer acting as a scribe for Nimisha Knowles MD. Provider Scribe Attestation: All medical record entries made by the Scribe were at my direction and personally dictated by me. I have reviewed the chart and agree that the record accurately reflects my personal performance of the history, physical exam, medical decision making, and the department course for this patient. I have also personally directed, reviewed, and agree with the discharge instructions and disposition. Disposition - Clinical Impression Clinical Impression: Asthma attack, Persistent asthma with acute exacerbation - Disposition Referrals: [facility] [Provider Group] Disposition: Routine/Home Disposition Time: 19:00 Condition: STABLE Prescriptions: Albuterol HFA [Ventolin HFA 90 mcg/actuation (8 g)] 2 puff IH Q4H PRN #1 inh PRN Reason: ASTHMA Fluticasone/Salmeterol [Airduo Respiclick 232-14 Mcg] 1 puff IH BID #1 aer.pow.ba Prednisone 50 mg PO DAILY #4 tablet Instructions: Asthma, Adult (DC), Inhaled Corticosteroid Medicines Forms: [employer] (Croatian)
[2018-12-08] MEDS ORDERED: Albuterol-Ipratrop 3 mg / 0.5 (3 ml) UD ONE (18:57)
[2018-12-08 21:34] VITALS: BP 149/91; PULSE 78; RESP 20; TEMP 98
--- NOTE | 2018-12-09 12:39 | CARD ---
APPROVED REPORT Date of service: 12/08/2018 EKG Measurement Heart [id number] <Conclusion> Normal sinus rhythm Normal ECG
[2018-12-11 10:48] VITALS: O2SAT 96
== END 2018-12-08 19:58 | disposition home or self-care (01) ==
LOC: H.ER 17:56
DX: J45.901 Unspecified asthma with (acute) exacerbation (principal); J44.9 Chronic obstructive pulmonary disease, unspecified; Z79.899 Other long term (current) drug therapy
CPT/HCPCS: 81025; 93005; 94640; 96372; 99284; J2930